=== PATIENT | female | born 1940 | race Caucasian/White ===

== ENCOUNTER → 2016-06-02 | Outpatient (CLI) | payer OTHER ==
[~2016-06-02] MED LIST: ACET-1138 PO; ASPEC81 PO; ATOR-24 PO; CEFU1TAB35 PO; CLB200 PO; HYDR25TA4 PO; LISI40TA PO; LSNP/30 PO; LXT PO; METR0.754 TOP; ONDA4TAB65 PO; OXYB10TA PO; OXYSR10 PO; PEDICHW50 PO; PENC1CRE33 TOP; PROM25TA PO; PXL/40 PO; RXC5 PO; SIME80CH PO; SOLI10TA2 PO; TRIA0.5O TOP; VITAMIN B12 SC; ZNTT/150 PO
== END | disposition home or self-care (01) ==
LOC: C.LABSPEC 14:29
PROVIDERS: ATTEND Urology
DX: N39.0 Urinary tract infection, site not specified (principal)

== ENCOUNTER → 2016-06-30 | Outpatient (CLI) | payer OTHER | END | disposition home or self-care (01) | LOC: C.LABSPEC 15:57 | PROVIDERS: ATTEND Urology | DX: N39.0 Urinary tract infection, site not specified (principal); R32 Unspecified urinary incontinence; R35.0 Frequency of micturition; R39.15 Urgency of urination ==

== ENCOUNTER → 2016-07-25 | Outpatient (CLI) | payer OTHER ==
--- NOTE | 2016-07-25 11:13 | DIAGNOSTIC IMAGING REPORT ---
ABDOMEN AND PELVIS CT WITHOUT CONTRAST CT DOSE: 448.97 mGy.cm HISTORY: Flank pain N39.0 Acute UTIR35.0 Urinary asbzorpyrD39.15 Urinary urgency l TECHNIQUE: Multiaxial CT images of the abdomen and pelvis were performed without contrast. COMPARISON STUDY: 09/26/2006 FINDINGS: Mild bibasilar atelectatic change. Configuration of liver spleen and pancreas appears unremarkable. Pancreas is partially atrophied. Several nonobstructing calcifications lower pole left kidney unchanged in the prior exam to slightly increased in maximum dimension. Largest calcification within the lower pole left renal collecting system measures 9 mm. Right kidney demonstrates a subtle increase in infiltrative change of the right renal perinephric fat. No evidence for hydronephrosis. Possibility of developing pyelonephritis is a consideration. There is increased fecal load throughout the colon. There are nonobstructive bilateral inguinal hernias. There are postoperative changes consistent with prior surgical anastomosis of the sigmoid as well as probable gastric bypass type procedure. IMPRESSION: 1. Slight increase in volume of several nonobstructing calcifications lower aspect left kidney. 2. Slight edematous change right kidney with a slight degree of infiltrative change of the perinephric fat. Right renal pyelonephritis must be considered. 3. Increased fecal load throughout the colon consistent with a component of fecal stasis. 4. Stable postoperative changes including changes of a prior gastric bypass as well as partial sigmoid resection. Electronically signed by: Darren Arauz M.D. 07/25/2016 11:11 AM Dictated Date/Time: 07/25/2016 11:05 AM
== END | disposition home or self-care (01) ==
LOC: C.CTS 10:47
PROVIDERS: ATTEND Urology
DX: N39.0 Urinary tract infection, site not specified (principal); R35.0 Frequency of micturition; R39.15 Urgency of urination; N20.0 Calculus of kidney

== ENCOUNTER → 2016-08-25 | Outpatient (CLI) | payer OTHER ==
[~2016-08-25] MED LIST changes: -PENC1CRE33 TOP; +PENC1CRE4 TOP
== END | disposition home or self-care (01) ==
LOC: C.LABSPEC 10:46
PROVIDERS: ATTEND Urology
DX: N39.0 Urinary tract infection, site not specified (principal)

== ENCOUNTER → 2016-09-14 | Outpatient (CLI) | payer OTHER ==
[~2016-09-14] VITALS: Ht 160 cm; Wt 68.9 kg
[~2016-09-14] MED LIST changes: +LACTATED RINGER'S 1000ML 1,000 ML IV SCH; +PIPERACILL/TAZOBAC IV 3.375 GM in DEXTROSE 5% 100ML IV SCH
[2016-09-14 12:53] VITALS: Ht 160 cm; Wt 68.9 kg
--- NOTE | 2016-09-14 13:19 | PAT Medication Instructions ---
Service Date Sep 14, 2016. Current Home Medication List Atorvastatin (Lipitor), 40 MG PO QAM Cefuroxime Axetil (Cefuroxime Axetil), 1 TAB PO BID Lisinopril (Zestril), 40 MG PO QAM Ondansetron Hcl (Zofran), 4 MG PO PRN PRN for Nausea Paroxetine (Paxil), 40 MG PO HS Ranitidine (Zantac), 150 MG PO BID Simethicone (Gas-X), 1 TAB PO DAILY PRN for PRN Solifenacin (Vesicare), 10 MG PO QAM Medication Instructions For Your Scheduled Surgery - Hold the following medications the morning of surgery: Solifenacin (Vesicare), 10 MG PO QAM Simethicone (Gas-X), 1 TAB PO DAILY PRN for PRN Ranitidine (Zantac), 150 MG PO BID Lisinopril (Zestril), 40 MG PO QAM - Take the following medications the morning of surgery with a sip of water: Ondansetron Hcl (Zofran), 4 MG PO PRN PRN for Nausea (if needed) Atorvastatin (Lipitor), 40 MG PO QAM Cefuroxime Axetil (Cefuroxime Axetil), 1 TAB PO BID - Take the following medications as scheduled the night before surgery: Simethicone (Gas-X), 1 TAB PO DAILY PRN for PRN (if needed) Ranitidine (Zantac), 150 MG PO BID Paroxetine (Paxil), 40 MG PO HS Ondansetron Hcl (Zofran), 4 MG PO PRN PRN for Nausea (if needed) Cefuroxime Axetil (Cefuroxime Axetil), 1 TAB PO BID If you have any questions please call us at [phone] or [phone] or [phone]
--- NOTE | 2016-09-14 13:57 | DIAGNOSTIC IMAGING REPORT ---
CHEST PREADMISSION(PA/LAT) CLINICAL HISTORY: PAT preoperative evaluation COMPARISON STUDY: 05/08/2015 FINDINGS: The bones soft tissues and hemidiaphragms are normal. The cardiomediastinal silhouette is normal. The lungs are clear. The pulmonary vasculature is normal. Chronic fibrotic changes left base. No acute infiltrate. IMPRESSION: No acute process. Chronic changes as noted. The above report was generated using voice recognition software. It may contain grammatical, syntax or spelling errors. Electronically signed by: Darren Arauz M.D. 09/14/2016 1:56 PM Dictated Date/Time: 09/14/2016 1:55 PM
[2016-09-14 14:21] LABS: BASO % 0.3 %; BASO ABS # 0.02 K/uL (0-0.2); COMPLETE YES; EOS % 3.8 %; HEMATOCRIT 40.7 % (37-47); IG% 0.3 %; LYMPH % 23.1 %; LYMPH ABS # 1.72 K/uL (1.2-3.4); MEAN CELL VOLUME 88.5 fL (80-100); MEAN CORPUSCULAR HGB CONC 33.9 g/dl (32-36); MEAN PLATELET VOLUME 8.9 fL (7.4-10.4); MONO % 6.6 %; NEUT % 65.9 %; PLATELET COUNT 321 K/uL (130-400); WHITE BLOOD COUNT 7.46 K/uL (4.8-10.8)
[2016-09-14 14:28] LABS: BUN/CREATININE RATIO 22.2 (10-20); CALCIUM 9.1 mg/dl (8.5-10.1); CREATININE 0.69 mg/dl (0.60-1.20); POTASSIUM 4.1 mmol/L (3.5-5.1)
[2016-09-14 14:41] LABS: URINE APPEARANCE TURBID (CLEAR); URINE BILIRUBIN NEG (NEG); URINE COLOR DK YELLOW; URINE EPITHELIAL CELL AUTO >30 /lpf (0-5); URINE NITRITE NEG (NEG); URINE PH 5.5 (4.5-7.5); URINE SPECIFIC GRAVITY 1.019 (1.000-1.030); UROBILINOGEN NEG (NEG)
[2016-09-14 14:49] LABS: MANUAL MICROSCOPIC REQUIRED? NO; REVIEW REQ? YES
== END | disposition home or self-care (01) ==
LOC: C.LAB 08:00 → EDSTATUS 09-27 12:41
PROVIDERS: ATTEND Urology
DX: Z01.818 Encounter for other preprocedural examination (principal)

== ENCOUNTER 2020-03-10 09:27 | Inpatient (IN) ==
[2020-03-10] MEDS ORDERED: cefTRIAXone SODIUM 1,000 MG/50 ML BAG IV STA (09:53)
[2020-03-10] MEDS: SODIUM CHLORIDE 0.9% 1000ML 1,000 ML IV SCH ×2 (10:34→20:17)
[2020-03-10 10:36] LABS: Basophils # (auto) 0.02 K/uL (0-0.2); Basophils % (auto) 0.2 %; Eosinophils # (auto) 0.09 K/uL (0-0.5); Hematocrit (blood only) 45.2 % (37-47); Hemoglobin 15.3 g/dL (12.0-16.0); Immature Granulocytes # (auto) 0.02 K/uL (0.00-0.02); Immature Granulocytes % (auto) 0.2 %; Lymphocytes # (auto) 1.77 K/uL (1.2-3.4); Lymphocytes % (auto) 19.6 %; Mean Corpuscular Hemoglobin 30.9 pg (25-34); Mean Corpuscular Hgb Conc 33.8 g/dL (32-36); Mean Corpuscular Volume 91.3 fL (80-100); Mean Platelet Volume 9.6 fL (7.4-10.4); Monocytes # (auto) 0.61 K/uL (0.11-0.59); Monocytes % (auto) 6.7 %; Neutrophils # (auto) 6.54 K/uL (1.4-6.5); Neutrophils % (auto) 72.3 %; Platelet Count 359 K/uL (130-400); RDW Coefficient of Variation 15.6 % (11.5-14.5); RDW Standard Deviation 52.3 fL (36.4-46.3); Red Blood Count 4.95 M/uL (4.2-5.4); White Blood Count 9.05 K/uL (4.8-10.8)
[2020-03-10 10:53] LABS: Albumin Level 3.7 gm/dl (3.4-5.0); BUN Creatinine Ratio 20.7 (10-20); Calcium 9.9 mg/dl (8.5-10.1); Creatinine Clr Calc Pharmacy 61.6 ml/min; Est GFR (African American) 96.6; Est GFR (Non-African American) 83.4; Potassium 4.3 mmol/L (3.5-5.1)
[2020-03-10 10:56] LABS: Albumin Globulin Ratio 0.9 (0.9-2); Bilirubin,Total 0.4 mg/dl (0.2-1); Total Protein 7.7 gm/dl (6.4-8.2)
--- NOTE | 2020-03-10 11:07 | XRay Report ---
KUB CLINICAL HISTORY: L ureteral stone COMPARISON STUDY: Renal ultrasound 03/05/20. CT of the abdomen and pelvis July 25, 2016. FINDINGS: A 1.9 x 0.8 cm left ureteropelvic junction calculus is similar to ultrasound of March 05, 2020. A 1 cm calculus within the lower pole of the left kidney is noted. A few suspected right renal calculi are obscured by overlying stool and bowel gas. Bowel gas pattern is normal. Severe left hip osteoarthritis is noted with loss of the joint space and extensive sclerosis and osteophytosis with f lattening of the left femoral head. Several surgical staple lines within the bowel are noted. There i s S-shaped scoliosis of the thoracolumbar spine. IMPRESSION: 1. No change in a 1.9 x 0.8 cm left ureteropelvic junction calculus. 2. 1 cm calculus within the lower pole of the left kidney. Probable right renal calculi. ACT 112: Negative or not required by law. Electronically signed by: Clive Carver M.D. 03/10/2020 11:06 AM
--- NOTE | 2020-03-10 11:09 | XRay Report ---
XR chest 1V portable CLINICAL HISTORY: Fever. Chills. COMPARISON STUDY: Chest radiograph September 14, 2016. FINDINGS: Lung volumes are normal. There is no pneumothorax or pleural effusion. There is mild left l ower lung opacity. Cardiomediastinal silhouette is unremarkable. Is no evidence for pulmonary edema. IMPRESSION: Mild left lower lung opacity which could reflect an infectious process or atelectasis. ACT 112: Negative or not required by law. Electronically signed by: Clive Carver M.D. 03/10/2020 11:07 AM
[2020-03-10 11:28] LABS: Influenza A virus by PCR Negative (Neg); Influenza B virus by PCR Negative (Neg); RSV by PCR Negative (Neg); SARS CoV2 RNA(COVID-19) InHosp NEGATIVE (Negative)
[2020-03-10] MEDS ORDERED: ACETAMINOPHEN 1,000 MG/100 ML VIAL IV STA (11:39)
[2020-03-10 11:41] LABS: Appearance Urine Cloudy (Clear); Bacteria Urine Automated Negative (Negative); Bilirubin Urine Negative (Negative); Blood Urine 1+ (Negative); Color Urine Yellow; Epithelial Cell Urine Auto >30 /lpf (0-5); Glucose Urine UA Negative (Negative); Ketones Urine Negative (Negative); Leukocyte Esterase Urine 2+ (Negative); Nitrite Urine Negative (Negative); Protein Urine Negative (Negative); Specific Gravity Urine 1.014 (1.000-1.030); Urobilinogen Urine Negative (Negative); WBC Urine Automated >30 /hpf (0-5)
--- NOTE | 2020-03-10 13:11 | History & Physical Report ---
Date of Service March 10, 2020 Assessment & Plan (1) Obstruction of left ureteropelvic junction (UPJ) due to stone: (2) Complicated UTI (urinary tract infection): This is a 79yo F with a PMH of kidney stones, HTN, HLD, depression, anxiety, urinary incontinence and other medical problems listed below who presents with chills that started this morning with recently diagnosed large left sided kidney stones with UTI. -Recently diagnosed with large left sided kidney stone and referred to ED by PCP on 03/05/20 -Urology felt it was appropriate for outpatient follow-up and Bactrim was continued at time of discharge but 03/05 urine cx grew E.Coli resistant to Bactrim and Fluoroquinolones, was changed to Cefdinir on 03/07/20 -Developed chills this morning but afebrile, no leukocytosis. Lactate wnl. UA with evidence of infection - repeat urine culture pending -KUB with no change in a 1.9 x 0.8 cm left ureteropelvic junction calculus. Also with 1 cm calculus within the lower pole of the left kidney -Given Rocephin in ED and will continue. Follow urine culture -Urology consulted -plan for cystoscopy and left-sided ureteral stent placement tomorrow morning -NPO after midnight (3) Hypertension: Normotensive. Continue lisinopril. Not currently taking hctz although prescribed. Instructed to follow up with PCP to discuss further (4) Anxiety: (5) Hyperlipidemia: Continue statin (6) Depression: Continue Paxil, Remeron HS (7) Urge urinary incontinence: Continue oxybutynin DVT Ppx: SCDs Code status: FULL PCP: Elisabeth Dispo: Admitted to med/surg. Patient seen in collaboration with Dr. Phan. Please see addendum. History of Present Illness Chief Complaint: UTI, kidney stones Primary Care Provider: Debo Barber MD This is a 79yo F with a PMH of kidney stones, HTN, HLD, depression, anxiety, urinary incontinence and other medical problems listed below who presents with chills that started this morning. Was diagnosed with large left sided kidney stone and referred to ED by PCP on 03/05/20. Urology felt it was appropriate for patient to follow up in outpatient setting and Bactrim was continued at time of discharge. When urine culture from 03/05 grew E.Coli resistant to Bactrim and Fluoroquinolones, was changed to Cefdinir on 03/07/20, which patient states she has taken 1 day of. Was due for OP urology follow up today but woke up with chills so came to ED for further evaluation. Denies fever, lightheadedness, headache, chest pain, SOB, nausea, vomiting, abdominal pain, dysuria, hematuria, diarrhea or constipation. In ED, patient is afebrile and hemodynamically stable. No leukocytosis. Hgb stable at 15. Electrolytes wnl. Kidney function at baseline. Lactate wnl. UA with evidence of infection - urine culture pending. KUB with no change in a 1.9 x 0.8 cm left ureteropelvic junction calculus. Also with 1 cm calculus within th e lower pole of the left kidney. Probable right renal calculi. Given Rocephin and 1 L NSS in ED. Urology consulted and will see patient today with plans for intervention tomorrow. Allergies Allergy/AdvReac Type Severity Reaction Status Date / Time cephalexin AdvReac Mild YEAST Verified 03/10/20 10:45 INFECT Influenza Virus Vaccines AdvReac Mild GOT THE Verified 03/10/20 10:45 FLU YRS AGO Home Medications Medication Instructions Recorded Confirmed Type atorvastatin 40 mg PO QAM 01/03/18 03/10/20 History hydrochlorothiazide 12.5 mg PO QAM 01/03/18 03/10/20 History lisinopril 40 mg PO QAM 01/03/18 03/10/20 History paroxetine HCl [Paxil] 40 mg PO QAM 01/03/18 03/10/20 History oxybutynin chloride 10 mg 10 mg PO QAM 06/12/19 03/10/20 History tablet,extended release 24 hr mirtazapine [Remeron] 15 mg PO HS 03/05/20 03/10/20 History ondansetron HCl 4 mg PO Q6 PRN 03/05/20 03/10/20 History sulfamethoxazole-trimethoprim 1 tab PO Q12H 7 Days #14 tab 03/05/20 03/10/20 Rx [Bactrim DS] triamcinolone acetonide 1 applic TOPICAL BID PRN 03/05/20 03/10/20 History Past Med/Surg History Medical History (Updated 03/10/20 @ 14:57 by Tova Kelley PA-C) Anxiety Cancer SKIN CANCER-ARM Deep vein thrombosis 20 YEARS AGO-NO ISSUES SINCE Degenerative disc disease Depression Diverticulitis GERD (gastroesophageal reflux disease) Gout Hyperlipidemia Hypertension Kidney stones HX Osteoarthritis Urge urinary incontinence Surgical History (Updated 03/10/20 @ 14:52 by Tova Kelley PA-C) H/O oophorectomy History of appendectomy History of bilateral tubal ligation History of bowel resection History of cataract surgery LEFT History of cholecystectomy History of colonoscopy History of colostomy AND REVERSAL History of dilatation and curettage History of gastric bypass History of tonsillectomy History of tooth extraction History of total knee replacement LEFT S/P panniculectomy S/P TKR (total knee replacement) Family History Sister Family history of diabetes mellitus Mother Family history of diabetes mellitus Social History Smoking Status: Current every day smoker packs per day: 0.5; Cigarettes Per Day: 1/2 pack.; Second Hand Exposure: No; Do You Dip or Chew Tobacco: No; Tobacco Cessation Education Requested by Patient: No Hx Alcohol Use: No Hx Substance Use: No Preferred Language: Romansh Communication Ability: Effective Gel Coat Sprayer Required: No Beliefs That Will Affect Care: None Current Living Situation: Alone Other Information That Helps Us Care for You: No Feels Safe at Home: Yes Safety Concerns: Feels Safe At This Time Assistive Devices: Cane, Denture - Upper and Glasses Review of Systems Review of Systems: At least ten systems reviewed and negative except as noted in the HPI. Physical Exam Physical Exam: General Appearance: WD/WN, vitals as above, NAD, sitting up in bed, pleasant, conversing easily Head: normocephalic, atraumatic Eyes: normal inspection, PERRL, conjunctivae normal, anicteric sclerae ENT: external ear and nose normal, oropharynx normal Neck: normal visual inspection, trachea midline, no thyromegaly Respiratory: normal respiratory effort, clear to auscultation, no wheeze, rales or rhonchi. No accessory muscle use Cardiovascular: regular rate, rhythm, no murmur, normal peripheral pulses, no BLE edema. Vessels: no JVD Chest: normal inspection of chest Abdomen/GI: normal bowel sounds, soft, nontender, no hepatosplenomegaly Extremities/Musculoskeletal: no cyanosis or clubbing, extremities motor strength 5/5 Neurologic: PERRL, EOMI, accommodation nl, no face palsy, no dysarthria, CN's II-XI intact bilaterally and moves all extremities Psychiatric: A+Ox3, euthymic affect Skin: no rashes, normal color, warm/dry Results & Data Results & Data ([facility]) Vital Signs (Past 12 Hours) Vital Signs Temp Pulse Pulse Resp BP BP Pulse Ox 03/10/20 12:30 36.9 C 71 16 135/97 95 03/10/20 12:12 74 14 149/90 H 97 03/10/20 12:11 84 18 149/90 H 96 03/10/20 11:00 81 18 141/68 H 97 03/10/20 10:44 72 16 149/78 H 97 03/10/20 10:43 80 19 149/78 H 97 03/10/20 09:30 36.3 C L 88 16 173/88 H 97 Laboratory Results Short CBC 03/10/20 Range/Units 09:59 WBC 9.05 (4.8-10.8) K/uL Hgb 15.3 (12.0-16.0) g/dL Hct 45.2 (37-47) % Plt Count 359 (130-400) K/uL BMP 03/10/20 09:59 Sodium 136 Potassium 4.3 Chloride 103 Carbon Dioxide 28 BUN 14 Creatinine 0.69 Glucose 109 H Calcium 9.9 Liver Function 03/10/20 Range/Units 09:59 Total Bilirubin 0.4 (0.2-1) mg/dl AST 15 (15-37) U/L ALT 18 (12-78) U/L Alkaline Phosphatase 114 (45-117) U/L Albumin 3.7 (3.4-5.0) gm/dl Urine 03/10/20 Range/Units 11:00 Urine Color Yellow Urine Appearance Cloudy A (Clear) Urine pH 6.0 (4.5-7.5) Ur Specific Shannon 1.014 (1.000-1.030) Urine Protein Negative (Negative) Urine Glucose (UA) Negative (Negative) Diagnostic Findings CXR: IMPRESSION: Mild left lower lung opacity which could reflect an infectious process or atelectasis. KUB: IMPRESSION: 1. No change in a 1.9 x 0.8 cm left ureteropelvic junction calculus. 2. 1 cm calculus within the lower pole of the left kidney. Probable right renal calculi. Code Status & VTE Plan VTE Prophylaxis Plan VTE Prophylaxis will be ordered: Yes Supervising Physician Co-Signing Physician Notes Patient is a 79-year-old female with history of nephrolithiasis, hypertension, depression and other medical problems presents with history of chills, hematuria. Please review HPI for complete details of presentation. Urine culture from March 05 growing E. coli. She admits to taking antibiotics as prescribed. Reports hematuria day before yesterday. Denies chest pain, dyspnea, flank pain, abdominal pain, dysuria, fever. No leukocytosis or signs of sepsis. COVID screen negative, procalcitonin and lactic acid levels normal. KUB showed 1.99 2.8 cm left to pelvic junction calculus. Also noted 1 cm calculus within the lower pole of the left kidney. On exam patient is moderately built and nourished, no apparent distress, normocephalic atraumatic, elderly, lungs--decreased breath sounds, clear to auscultation, S1-S2, no murmur, abdomen soft, nontender, no flank tenderness, normal bowel sounds, alert, awake, oriented, grossly no focal deficits, Trace pitting pedal edema. Patient is admitted for management of complicated urinary tract infection secondary to left ureteral stone. Started on IV Rocephin, Flomax. Continue IV fluids. Hold HCTZ and Oxybutynin for now. Urology consulted. Plan for possible stent placement tomorrow. Keep n.p.o. after midnight. Will consider Pyridium if patient develops dysuria. Monitor CBC. Also noted mild left lower lobe opacity on chest x-ray likely is atelectasis. Procalcitonin normal. Patient denies cough. I personally reviewed the record. Patient is interviewed and examined at bedside. Patient's care is coordinated with Tova Kelley PA-C. Please refer to the documentation above for details of patient's presentation and for discussion of other issues.
--- NOTE | 2020-03-10 14:00 | Urology Consultation ---
Date of Consultation March 10, 2020 Assessment & Plan (1) Obstruction of left ureteropelvic junction (UPJ) due to stone: (2) Acute UTI: 79 year-old female patient, with multiple comorbidities, admitted with obstructing 1.9 cm left ureteropelvic junction calculus and UTI. -Patient afebrile, non-toxic in appearance. -Imaging reviewed - obstructing 1.9 cm left UPJ stone with 1 cm calculus within lower pole of left kidney. -Labs reviewed - white count and creatinine stable. -Urine culture 03/05 with E.Coli, was treated with Bactrim as outpatient but due to resistance was switched to Cefdinir. -Repeat urine and blood cultures pending. -Recommend supportive care and continued antibiotic therapy. -Plan for surgical intervention tomorrow with cystoscopy and left-sided ureteral stent placement. -Recommend NPO at midnight. -OR notified, chest x-ray in chart, EKG ordered and COVID-19 negative. -Will continue to follow while inpatient and plan to reassess in AM. Please consult our service urgently if patient develops fever >101F, intractable pain or nausea, as this will necessitate urgent surgical intervention. Thank you for the consultation and we will continue to monitor closely with primary service. History of Present Illness Reason for Consultation: left UPJ stone, UTI History of Present Illness 79 year-old female patient, with past medical history of kidney stones, hypertension, hyperlipidemia, depression, anxiety, DVT 20 years ago, hypothyroidism, and urinary incontinence, presented to the emergency room today with complaints of chills and right-sided flank pain that began earlier this morning. She was recently diagnosed with obstructing left-sided proximal ureteral stone with UTI. Of note, patient was seen in the emergency room, refer red by her PCP, on 03/05/20 with complaints of hematuria. She was afebrile at that time. White count and creatinine normal. Urinalysis 03/05 was suspicious for infection and urine culture positive for E.Coli (resistance to Bactrim and Fluoroquinolones). She was sent home from ER on 03/05 with a prescription for Bactrim however due to resistant bacteria, was changed to Cefdinir on 03/07/20. Urology consulted for obstructing stone and UTI. Patient known to [facility], followed with Dr. Ba last in 2018 for stones and urinary frequency/urgency. Chart review: Afebrile Wbc 9.05 Hgb 15.3 Creatinine 0.69 Urine culture 03/05/20 >100,000 cfu E.Coli (resistant to Bactrim and Fluoroquinolones) - did receive 1g IV Ceftriaxone in ED. Repeat urine culture pending. Blood cultures pending. Imaging - [facility] 03/05/20 - Impression: Obstructing proximal left ureteral stone measuring 19 x 13 x 8 mm. Also with inferior pole stone measuring 15 x 11 x 10 mm. Probable debris within the dilated left renal collecting system. Bilateral nonobstructing nephrolithiasis. Bilateral renal cortical cysts. KUB 03/10/20 - Impression: 1. No change in a 1.9 x 0.8 cm left ureteropelvic junction calculus. 2. 1 cm calculus within the lower pole of the left kidney. Probable right renal calculi. Patient examined at bedside. She is non-toxic on exam. Reports her right-sided flank pain has improved. Continues to have chills, denies fever. Denies dysuria but does note intermittent hematuria. Reports urinary frequency/urgency. Denies abdominal or left-sided flank pain. Denies nausea or vomiting. States he has some dizziness when out of bed but denies syncopal episodes. She states she did start the Cefdinir she believes yesterday and took 2 doses. States she was told she has had larger stones in the past but declined surgical intervention for these. States her daughter has history of kidney stones. Denies additional urologic concerns today. Allergies Allergy/AdvReac Type Severity Reaction Status Date / Time cephalexin AdvReac Mild YEAST Verified 03/10/20 10:45 INFECT Influenza Virus Vaccines AdvReac Mild GOT THE Verified 03/10/20 10:45 FLU YRS AGO Home Medications Medication Instructions Recorded Confirmed Type atorvastatin 40 mg PO QAM 01/03/18 03/10/20 History hydrochlorothiazide 12.5 mg PO QAM 01/03/18 03/10/20 History lisinopril 40 mg PO QAM 01/03/18 03/10/20 History paroxetine HCl [Paxil] 40 mg PO QAM 01/03/18 03/10/20 History oxybutynin chloride 10 mg 10 mg PO QAM 06/12/19 03/10/20 History tablet,extended release 24 hr mirtazapine [Remeron] 15 mg PO HS 03/05/20 03/10/20 History ondansetron HCl 4 mg PO Q6 PRN 03/05/20 03/10/20 History sulfamethoxazole-trimethoprim 1 tab PO Q12H 7 Days #14 tab 03/05/20 03/10/20 Rx [Bactrim DS] triamcinolone acetonide 1 applic TOPICAL BID PRN 03/05/20 03/10/20 History Patient History Medical History (Updated 03/10/20 @ 14:57 by Tova Kelley PA-C) Anxiety Cancer SKIN CANCER-ARM Deep vein thrombosis 20 YEARS AGO-NO ISSUES SINCE Degenerative disc disease Depression Diverticulitis GERD (gastroesophageal reflux disease) Gout Hyperlipidemia Hypertension Kidney stones HX Osteoarthritis Urge urinary incontinence Surgical History (Updated 03/10/20 @ 14:52 by Tova Kelley PA-C) H/O oophorectomy History of appendectomy History of bilateral tubal ligation History of bowel resection History of cataract surgery LEFT History of cholecystectomy History of colonoscopy History of colostomy AND REVERSAL History of dilatation and curettage History of gastric bypass History of tonsillectomy History of tooth extraction History of total knee replacement LEFT S/P panniculectomy S/P TKR (total knee replacement) Family History Sister Family history of diabetes mellitus Mother Family history of diabetes mellitus Social History Smoking Status: Current every day smoker packs per day: 0.5; Cigarettes Per Day: 1/2 pack.; Second Hand Exposure: No; Do You Dip or Chew Tobacco: No; Tobacco Cessation Education Requested by Patient: No Hx Alcohol Use: No Hx Substance Use: No Preferred Language: Montenegrin Communication Ability: Effective Converter Supervisor Required: No Beliefs That Will Affect Care: None Current Living Situation: Alone Other Information That Helps Us Care for You: No Feels Safe at Home: Yes Safety Concerns: Feels Safe At This Time Assistive Devices: Cane, Denture - Upper and Glasses Review of Systems Constitutional: as per Subjective / HPI and + chills; no fever Eyes: no problem reported Ear, Nose, Mouth, Throat: as per Subjective / HPI and + dizziness Respiratory: no cough and no dyspnea Cardiovascular: no chest pain and no edema Gastrointestinal: as per Subjective / HPI Genitourinary: as per Subjective / HPI Musculoskeletal: as per Subjective / HPI Neurologic: as per Subjective / HPI and + dizziness Endocrine: no fatigue Hematologic / Lymphatic: no easy bleeding and no easy bruising Physical Exam Constitutional: well developed and well nourished; no acute distress and not ill appearing Non-toxic in appearance. ENMT: Ears: no external ear abnormality Neck: normal visual inspection and trachea midline Respiratory: normal respiratory effort and able to speak in complete sentences; no respiratory distress and no audible wheezes Cardiovascular: Extremities: no calf tenderness and no edema Gastrointestinal (Abdomen): Inspection/Auscultation: abdomen normal to inspection; abdomen not distended Percussion/Palpation: abdomen soft; abdomen nontender and no guarding Musculoskeletal: Moves all extremities without difficulty. Skin: No visible rashes, lesions, or wounds noted. Neurologic: moves all extremities and awake Psychiatric: Orientation: alert, oriented x 3 and cooperative Affect: euthymic affect Genitourinary: no CVA tenderness Results & Data ([facility]) Vital Signs (Past 12 Hours) Vital Signs Temp Pulse Pulse Resp BP BP Pulse Ox 03/10/20 12:30 36.9 C 71 16 135/97 95 03/10/20 12:12 74 14 149/90 H 97 03/10/20 12:11 84 18 149/90 H 96 03/10/20 11:00 81 18 141/68 H 97 03/10/20 10:44 72 16 149/78 H 97 03/10/20 10:43 80 19 149/78 H 97 03/10/20 09:30 36.3 C L 88 16 173/88 H 97 PG Care Time/CCT Total # of Minutes Spent Total Time Spent with Patient: Total time spent is greater than 50% in coordination of care (as documented) at patient's floor/unit and/or counseling patient: Coding Level of Care Code 42306 Initial Inpt Care Lvl 3 Diagnoses Obstruction of left ureteropelvic junction (UPJ) due to stone N20.1 Acute UTI N39.0
[2020-03-10] MEDS ORDERED: POLYETHYLENE (MIRALAX) 17 GM PACK PO PRN (15:03)
[2020-03-10] MEDS ORDERED: ONDANSETRON INJ 2 MG/ML 2 ML VIAL IV PRN (15:03)
[2020-03-10] MEDS ORDERED: ACETAMINOPHEN 325 MG TAB PO PRN (15:43)
[2020-03-10] MEDS ORDERED: TAMSULOSIN HCL 0.4 MG CAP PO ONE (15:45)
--- NOTE | 2020-03-10 18:04 | Emergency Department Note ---
Impression & Plan Obstruction of left ureteropelvic junction (UPJ) due to stone, Complicated UTI (urinary tract infection) ED Provider Note NAME: ELMER VARNER AGE: 79 SEX: F ARRIVES VIA: Walk-In INFORMANT: Patient ED PROVIDER(S): Lelo Siu MD CHIEF COMPLAINT: kidney stone, UTI, chill PLAN: Disposition: admission Condition: Fair Referral: hospitalist, urology MEDICAL DECISION MAKING: This pt was evaluated and appeared to be in no distress. IV access was obtained and lab work was drawn. Pt was placed on the zipper setter and noted to be in a SR with premature supraventricular complexes at 80 bpm. Pt was gently hydrated with NSS, given IV tylenol for pain. KUB was performed and reveals a 1.9 cm L UPJ stone. UA is indicative of infection and recent cx results were reviewed. Pt was medicated with IV ceftriaxone. Case was d/w urology GUICHO Stephany for Dr. Ba and the hospitalist service Dr. Fernandez for further management. Triage Nursing notes reviewed. Prior medical records reviewed. Vital Signs: reviewed and remarkable for HTN. Differential diagnosis: Renal colic, UTI, appendicitis, diverticulitis, mesenteric ischemia, aortic pathology, infections, inflammatory bowel disease, PUD, biliary pathology, as well as other pathologies. ER treatment provided: IV NSS IV tylenol IV ceftriaxone Diagnostics interpreted by me: ECG:NSR with premature supraventricular complexes at 71 bpm. T wave abnl laterally, normal axis, normal ST segments. Cardiac Monitoring: An order for cardiac monitoring was placed and the pt was noted to be in a SR with premature supraventricular complexes at 80 bpm. Laboratory studies: +UA, see below Imaging studies: KUB CLINICAL HISTORY: L ureteral stone COMPARISON STUDY: Renal ultrasound 03/05/20. CT of the abdomen and pelvis July 25, 2016. FINDINGS: A 1.9 x 0.8 cm left ureteropelvic junction calculus is similar to ultrasound of March 05, 2020. A 1 cm calculus within the lower pole of the left kidney is noted. A few suspected right renal calculi are obscured by overlying stool and bowel gas. Bowel gas pattern is normal. Severe left hip osteoarthritis is noted with loss of the joint space and extensive sclerosis and osteophytosis with flattening of the left femoral head. Several surgical staple lines within the bowel are noted. There is S-shaped scoliosis of the thoracolumbar spine. IMPRESSION: 1. No change in a 1.9 x 0.8 cm left ureteropelvic junction calculus. 2. 1 cm calculus within the lower pole of the left kidney. Probable right renal calculi. ACT 112: Negative or not required by law. Electronically signed by: Clive Carver M.D. 03/10/2020 11:06 AM Dictated: 03/10/20 1103Transcribed: 03/10/20 1103 XR chest 1V portable CLINICAL HISTORY: Fever. Chills. COMPARISON STUDY: Chest radiograph September 14, 2016. FINDINGS: Lung volumes are normal. There is no pneumothorax or pleural effusion. There is mild left lower lung opacity. Cardiomediastinal silhouette is unremarkable. Is no evidence for pulmonary edema. IMPRESSION: Mild left lower lung opacity which could reflect an infectious process or atelectasis. ACT 112: Negative or not required by law. Electronically signed by: Clive Carver M.D. 03/10/2020 11:07 AM Dictated: 03/10/20 1106Transcribed: 03/10/20 110 Consultation(s): Urology, hospitalist HPI: 79/F arrives for evaluation of chills. Pt was evaluated in the ED several days ago and dx with UTI after having an outpt US significant for renal calculus. Pt was d/c on Bactrim DS as she was felt not to have a septic stone or pyelonephritis. Pt denies fever at home. She denies vomiting, diarrhea, bur maria isabel with urination. She c/o a "small pain" in the right flank, but states she knows the stones are the left. Pt was switched to cefdinir after the cx was resistant to Bactrim. She has taken ~2 or 3 doses this far. Pt was scheduled with urology today, but felt she needed to be seen in the ED sooner. ROS: See above HPI for pertinent positives & negatives. A total of 10 systems reviewed and were otherwise negative. PAST MEDICAL HISTORY:See Below PAST SURGICAL HISTORY:See Below FAMILY HISTORY:See Below SOCIAL HISTORY:See Below HOME MEDICATIONS:See Below ALLERGIES:See Below VITALS:See Below PHYSICAL EXAMINATION: Vital signs reviewed. Notable for HTN. General: Well-appearing 79 yo female, in no significant distress. HEENT: No scleral icterus, PERRLA, neck supple. Atraumatic. Cardiovascular: Regular rate and rhythm, no extra sounds. Occasional ectopy. Pulmonary: Clear to auscultation bilaterally, normal work of breathing. Abdomen: Soft, nontender, nondistended, positive bowel sounds. No CVA tende rness. Musculoskeletal: Atraumatic, no peripheral edema. Neurologic: Patient awake alert and oriented x 3 Skin: Warm, dry, no rash Lelo Siu MD Past Med/Surg History Medical History Anxiety Cancer SKIN CANCER-ARM Deep vein thrombosis 20 YEARS AGO-NO ISSUES SINCE Degenerative disc disease Depression Diverticulitis GERD (gastroesophageal reflux disease) Gout Hyperlipidemia Hypertension Kidney stones HX Osteoarthritis Urge urinary incontinence Surgical History H/O oophorectomy History of appendectomy History of bilateral tubal ligation History of bowel resection History of cataract surgery LEFT History of cholecystectomy History of colonoscopy History of colostomy AND REVERSAL History of dilatation and curettage History of gastric bypass History of tonsillectomy History of tooth extraction History of total knee replacement LEFT S/P panniculectomy S/P TKR (total knee replacement) Family History Sister Family history of diabetes mellitus Mother Family history of diabetes mellitus Social History Smoking Status: Current every day smoker packs per day: 0.5; Cigarettes Per Day: 1/2 pack.; Second Hand Exposure: No; Hx Alcohol Use: No Hx Substance Use: No Preferred Language: Faroese Communication Ability: Effective Credit Review Analyst Required: No Beliefs That Will Affect Care: None Current Living Situation: Alone Feels Safe at Home: Yes Assistive Devices: Cane and Glasses Allergies Allergies Allergy/AdvReac Type Severity Reaction Status Date / Time cephalexin AdvReac Mild YEAST Verified 03/10/20 10:45 INFECT Influenza Virus Vaccines AdvReac Mild GOT THE Verified 03/10/20 10:45 FLU YRS AGO Home Meds Home Medications Medication Instructions Recorded Confirmed atorvastatin 40 mg PO QAM 01/03/18 03/10/20 hydrochlorothiazide 12.5 mg PO QAM 01/03/18 03/10/20 lisinopril 40 mg PO QAM 01/03/18 03/10/20 paroxetine HCl [Paxil] 40 mg PO QAM 01/03/18 03/10/20 oxybutynin chloride 10 mg 10 mg PO QAM 06/12/19 03/10/20 tablet,extended release 24 hr mirtazapine [Remeron] 15 mg PO HS 03/05/20 03/10/20 ondansetron HCl 4 mg PO Q6 PRN 03/05/20 03/10/20 triamcinolone acetonide 1 applic TOPICAL BID PRN 03/05/20 03/10/20 Previous Rx's Medication Instructions Recorded cefdinir 300 mg PO Q12H 8 Days #16 cap 03/12/20 Results & Data (ED) Vital Signs Vital Signs - 24 hr 03/10/20 09:30 03/10/20 10:43 03/10/20 10:44 Temperature 36.3 C L Temperature Source Temporal Artery Scan Pulse Rate 88 72 Pulse Rate [Apical] 80 Pulse Rate from SpO2 Sensor 69 Pulse Rhythm [Apical] Irregular Respiratory Rate 16 19 16 Respiratory Effort / Characteristics Non-Labored Non-Labored Spontaneous Respiratory Depth Normal Normal Respiratory Pattern Regular Blood Pressure 173/88 H 149/78 H Blood Pressure [Left Arm] 149/78 H Blood Pressure Mean 116 101 Blood Pressure Mean [Left Arm] 101 Blood Pressure Position [Left Arm] Sitting Pulse Oximetry 97 97 97 Oxygen Delivery Method Room Air Sepsis Recent Fever Within 48 Hours No Sepsis New/Unexplained Change in Mental Status No Sepsis Action Taken by Nursing No Action Required 03/10/20 11:00 03/10/20 12:11 03/10/20 12:12 Temperature Temperature Source Pulse Rate 81 84 Pulse Rate [Apical] 74 Pulse Rate from SpO2 Sensor 65 82 Pulse Rhythm [Apical] Respiratory Rate 18 18 14 Respiratory Effort / Characteristics Respiratory Depth Respiratory Pattern Blood Pressure 141/68 H 149/90 H Blood Pressure [Left Arm] 149/90 H Blood Pressure Mean 92 109 Blood Pressure Mean [Left Arm] 109 Blood Pressure Position [Left Arm] Pulse Oximetry 97 96 97 Oxygen Delivery Method Room Air Sepsis Recent Fever Within 48 Hours Sepsis New/Unexplained Change in Mental Status Sepsis Action Taken by Nursing 03/10/20 12:30 Temperature 36.9 C Temperature Source Pulse Rate 71 Pulse Rate [Apical] Pulse Rate from SpO2 Sensor 79 Pulse Rhythm [Apical] Respiratory Rate 16 Respiratory Effort / Characteristics Respiratory Depth Respiratory Pattern Blood Pressure 135/97 Blood Pressure [Left Arm] Blood Pressure Mean 109 Blood Pressure Mean [Left Arm] Blood Pressure Position [Left Arm] Pulse Oximetry 95 Oxygen Delivery Method Sepsis Recent Fever Within 48 Hours Sepsis New/Unexplained Change in Mental Status Sepsis Action Taken by Alf Medications Current Medication List: was personally reviewed by me Laboratory Data Attestation: I reviewed the patient's lab results. Result diagrams: 03/12/20 06:04 03/12/20 06:04 Lab Results 03/10/20 03/10/20 03/10/20 Range/Units 09:59 09:59 09:59 WBC 9.05 (4.8-10.8) K/uL RBC 4.95 (4.2-5.4) M/uL Hgb 15.3 (12.0-16.0) g/dL Hct 45.2 (37-47) % MCV 91.3 (80-100) fL MCH 30.9 (25-34) pg MCHC 33.8 (32-36) g/dL RDW Std Deviation 52.3 H (36.4-46.3) fL RDW Coeff of Sheryl 15.6 H (11.5-14.5) % Plt Count 359 (130-400) K/uL MPV 9.6 (7.4-10.4) fL Immature Gran % (Auto) 0.2 % Neut % (Auto) 72.3 % Lymph % (Auto) 19.6 % [place] % (Auto) 6.7 % Eos % (Auto) 1.0 % Baso % (Auto) 0.2 % Neut # (Auto) 6.54 H (1.4-6.5) K/uL Lymph # (Auto) 1.77 (1.2-3.4) K/uL [place] # (Auto) 0.61 H (0.11-0.59) K/uL Eos # (Auto) 0.09 (0-0.5) K/uL Baso # (Auto) 0.02 (0-0.2) K/uL Immature Gran # (Auto) 0.02 (0.00-0.02) K/uL Sodium 136 (136-145) mmol/L Potassium 4.3 (3.5-5.1) mmol/L Chloride 103 (98-107) mmol/L Carbon Dioxide 28 (21-32) mmol/L Anion Gap 5.0 (3-11) BUN 14 (7-18) mg/dl Creatinine 0.69 (0.6-1.2) mg/dl Est Cr Clr Drug Dosing 61.6 ml/min Est GFR ( Amer) 96.6 Est GFR (Non-Af Amer) 83.4 BUN/Creatinine Ratio 20.7 H (10-20) Glucose 109 H (70-99) mg/dl Lactate 1.2 (0.4-2.0) mmol/L Calcium 9.9 (8.5-10.1) mg/dl Total Bilirubin 0.4 (0.2-1) mg/dl AST 15 (15-37) U/L ALT 18 (12-78) U/L Alkaline Phosphatase 114 (45-117) U/L Total Protein 7.7 (6.4-8.2) gm/dl Albumin 3.7 (3.4-5.0) gm/dl Globulin 4.0 (2.5-4.0) gm/dl Albumin/Globulin Ratio 0.9 (0.9-2) Procalcitonin (0-0.5) ng/ml Urine Color Urine Appearance (Clear) Urine pH (4.5-7.5) Ur Specific [place] (1.000-1.030) Urine Protein (Negative) Urine Glucose (UA) (Negative) Urine Ketones (Negative) Urine Blood (Negative) Urine Nitrite (Negative) Urine Bilirubin (Negative) Urine Urobilinogen (Negative) Ur Leukocyte Esterase (Negative) Urine WBC (Auto) (0-5) /hpf Urine RBC (Auto) (0-4) /hpf U Hyaline Cast (Auto) (0-5) /lpf U Epithel Cells (Auto) (0-5) /lpf Urine Bacteria (Auto) (Negative) COVID-19 Eval Order SARS-CoV-2 (PCR) (Negative) Influenza Type A (PCR) (Neg) Influenza Type B (PCR) (Neg) RSV (RT-PCR) (Neg) 03/10/20 03/10/20 03/10/20 Range/Units 09:59 10:42 10:42 WBC (4.8-10.8) K/uL RBC (4.2-5.4) M/uL Hgb (12.0-16.0) g/dL Hct (37-47) % MCV (80-100) fL MCH (25-34) pg MCHC (32-36) g/dL RDW Std Deviation (36.4-46.3) fL RDW Coeff of Sheryl (11.5-14.5) % Plt Count (130-400) K/uL MPV (7.4-10.4) fL Immature Gran % (Auto) % Neut % (Auto) % Lymph % (Auto) % [place] % (Auto) % Eos % (Auto) % Baso % (Auto) % Neut # (Auto) (1.4-6.5) K/uL Lymph # (Auto) (1.2-3.4) K/uL [place] # (Auto) (0.11-0.59) K/uL Eos # (Auto) (0-0.5) K/uL Baso # (Auto) (0-0.2) K/uL Immature Gran # (Auto) (0.00-0.02) K/uL Sodium (136-145) mmol/L Potassium (3.5-5.1) mmol/L Chloride (98-107) mmol/L Carbon Dioxide (21-32) mmol/L Anion Gap (3-11) BUN (7-18) mg/dl Creatinine (0.6-1.2) mg/dl Est Cr Clr Drug Dosing ml/min Est GFR ( Amer) Est GFR (Non-Af Amer) BUN/Creatinine Ratio (10-20) Glucose (70-99) mg/dl Lactate (0.4-2.0) mmol/L Calcium (8.5-10.1) mg/dl Total Bilirubin (0.2-1) mg/dl AST (15-37) U/L ALT (12-78) U/L Alkaline Phosphatase (45-117) U/L Total Protein (6.4-8.2) gm/dl Albumin (3.4-5.0) gm/dl Globulin (2.5-4.0) gm/dl Albumin/Globulin Ratio (0.9-2) Procalcitonin < 0.05 (0-0.5) ng/ml Urine Color Urine Appearance (Clear) Urine pH (4.5-7.5) Ur Specific [place] (1.000-1.030) Urine Protein (Negative) Urine Glucose (UA) (Negative) Urine Ketones (Negative) Urine Blood (Negative) Urine Nitrite (Negative) Urine Bilirubin (Negative) Urine Urobilinogen (Negative) Ur Leukocyte Esterase (Negative) Urine WBC (Auto) (0-5) /hpf Urine RBC (Auto) (0-4) /hpf U Hyaline Cast (Auto) (0-5) /lpf U Epithel Cells (Auto) (0-5) /lpf Urine Bacteria (Auto) (Negative) COVID-19 Eval Order [facility]FluRsv at [facility] SARS-CoV-2 (PCR) NEGATIVE (Negative) Influenza Type A (PCR) Negative (Neg) Influenza Type B (PCR) Negative (Neg) RSV (RT-PCR) Negative (Neg) 03/10/20 Range/Units 11:00 WBC (4.8-10.8) K/uL RBC (4.2-5.4) M/uL Hgb (12.0-16.0) g/dL Hct (37-47) % MCV (80-100) fL MCH (25-34) pg MCHC (32-36) g/dL RDW Std Deviation (36.4-46.3) fL RDW Coeff of Sheryl (11.5-14.5) % Plt Count (130-400) K/uL MPV (7.4-10.4) fL Immature Gran % (Auto) % Neut % (Auto) % Lymph % (Auto) % [place] % (Auto) % Eos % (Auto) % Baso % (Auto) % Neut # (Auto) (1.4-6.5) K/uL Lymph # (Auto) (1.2-3.4) K/uL [place] # (Auto) (0.11-0.59) K/uL Eos # (Auto) (0-0.5) K/uL Baso # (Auto) (0-0.2) K/uL Immature Gran # (Auto) (0.00-0.02) K/uL Sodium (136-145) mmol/L Potassium (3.5-5.1) mmol/L Chloride (98-107) mmol/L Carbon Dioxide (21-32) mmol/L Anion Gap (3-11) BUN (7-18) mg/dl Creatinine (0.6-1.2) mg/dl Est Cr Clr Drug Dosing ml/min Est GFR ( Amer) Est GFR (Non-Af Amer) BUN/Creatinine Ratio (10-20) Glucose (70-99) mg/dl Lactate (0.4-2.0) mmol/L Calcium (8.5-10.1) mg/dl Total Bilirubin (0.2-1) mg/dl AST (15-37) U/L ALT (12-78) U/L Alkaline Phosphatase (45-117) U/L Total Protein (6.4-8.2) gm/dl Albumin (3.4-5.0) gm/dl Globulin (2.5-4.0) gm/dl Albumin/Globulin Ratio (0.9-2) Procalcitonin (0-0.5) ng/ml Urine Color Yellow Urine Appearance Cloudy A (Clear) Urine pH 6.0 (4.5-7.5) Ur Specific [place] 1.014 (1.000-1.030) Urine Protein Negative (Negative) Urine Glucose (UA) Negative (Negative) Urine Ketones Negative (Negative) Urine Blood 1+ H (Negative) Urine Nitrite Negative (Negative) Urine Bilirubin Negative (Negative) Urine Urobilinogen Negative (Negative) Ur Leukocyte Esterase 2+ H (Negative) Urine WBC (Auto) >30 H (0-5) /hpf Urine RBC (Auto) 5-10 H (0-4) /hpf U Hyaline Cast (Auto) 1-5 (0-5) /lpf U Epithel Cells (Auto) >30 H (0-5) /lpf Urine Bacteria (Auto) Negative (Negative) COVID-19 Eval Order SARS-CoV-2 (PCR) (Negative) Influenza Type A (PCR) (Neg) Influenza Type B (PCR) (Neg) RSV (RT-PCR) (Neg) Administered Medications Discontinued Medications Atorvastatin Calcium (At[facility]vastatin 40 Mg Tab) [facility] [place] [place]: 04/10/20 08:59 Last Admin: 03/12/20 08:31 Dose: 40 mg Documented by: [id number] Admin: 03/11/20 12:36 Dose: 40 mg Documented by: [id number] Admin: 03/11/20 07:37 Dose: Not Given Documented by: [id number] Diatrizoate Meglumine (Diatrizoate Meglumine 30% 100ml Vial) 0 ml INSTIL UD PRN ; Protocol PRN Reason: surgical procedure Stop: 03/15/20 11:00 Last Admin: 03/11/20 11:05 Dose: 10 ml Documented by: [id number] Sodium Chloride (Nss 1000ml) 1,000 mls @ 100 mls/hr IV .Q10H [facility] Stop: 04/09/20 09:44 Last Infusion: 03/12/20 11:18 Dose: 0 mls/hr Documented by: [id number] Infusion: 03/12/20 09:07 Dose: 100 mls/hr Documented by: [id number] Infusion: 03/12/20 08:32 Dose: 0 mls/hr Documented by: [id number] Admin: 03/12/20 06:46 Dose: 100 mls/hr Documented by: [id number] Infusion: 03/12/20 06:32 Dose: 100 mls/hr Documented by: [id number] Admin: 03/12/20 03:32 Dose: Not Given Documented by: [id number] Admin: 03/11/20 20:32 Dose: 100 mls/hr Documented by: [id number] Infusion: 03/11/20 20:32 Dose: 100 mls/hr Documented by: [id number] Admin: 03/11/20 14:40 Dose: Not Given Documented by: [id number] Infusion: 03/11/20 12:46 Dose: 100 mls/hr Documented by: [id number] Infusion: 03/11/20 07:30 Dose: 0 mls/hr Documented by: [id number] Admin: 03/11/20 06:39 Dose: 100 mls/hr Documented by: [id number] Infusion: 03/11/20 06:17 Dose: 100 mls/hr Documented by: [id number] Admin: 03/10/20 20:17 Dose: 100 mls/hr Documented by: [id number] Infusion: 03/10/20 20:17 Dose: 0 mls/hr Documented by: [id number] Admin: 03/10/20 10:34 Dose: 100 mls/hr Documented by: [id number] Ceftriaxone Sodium (Rocephin) 1,000 mg in 50 mls @ 100 mls/hr IV NOW STA Stop: 03/10/20 10:22 Last Infusion: 03/10/20 11:04 Dose: 0 mls/hr Documented by: [id number] Admin: 03/10/20 10:34 Dose: 100 mls/hr Documented by: [id number] Acetaminophen (Ofirmev) 1,000 mg in 100 mls @ 400 mls/hr IV NOW STA Stop: 03/10/20 11:53 Last Infusion: 03/10/20 12:25 Dose: 0 mls/hr Documented by: [id number] Admin: 03/10/20 12:11 Dose: 400 mls/hr Documented by: [id number] Ceftriaxone Sodium 1,000 mg/ (Dextrose) 50 mls @ 100 mls/hr IV Q24H [facility]; Protocol Stop: 03/21/20 08:59 Last Infusion: 03/12/20 09:07 Dose: 0 mls/hr Documented by: [id number] Admin: 03/12/20 08:31 Dose: 100 mls/hr Documented by: [id number] Infusion: 03/11/20 08:40 Dose: 0 mls/hr Documented by: [id number] Admin: 03/11/20 07:29 Dose: 100 mls/hr Documented by: [id number] Lisinopril (Lisinopril 40 Mg Tab) 40 mg PO [facility] Stop: 04/10/20 08:59 Last Admin: 03/12/20 08:31 Dose: 40 mg Documented by: [id number] Admin: 03/11/20 12:35 Dose: 40 mg Documented by: [id number] Admin: 03/11/20 07:38 Dose: Not Given Documented by: [id number] Mirtazapine (Mirtazapine Tab 15 Mg Tab) 15 mg PO [facility] Stop: 04/09/20 20:59 Last Admin: 03/11/20 20:33 Dose: 15 mg Documented by: [id number] Admin: 03/10/20 20:17 Dose: 15 mg Documented by: [id number] Oxybutynin Chloride (Oxybutynin Chloride 5 Mg Tab) 10 mg PO [facility] Stop: 04/10/20 13:59 Last Admin: 03/12/20 08:31 Dose: 10 mg Documented by: [id number] Admin: 03/11/20 13:37 Dose: 10 mg Documented by: [id number] Paroxetine HCl (Paroxetine Hcl 20 Mg Tab) 40 mg PO [facility] Stop: 04/10/20 08:59 Last Admin: 03/12/20 08:31 Dose: 40 mg Documented by: [id number] Admin: 03/11/20 12:36 Dose: 40 mg Documented by: [id number] Admin: 03/11/20 07:37 Dose: Not Given Documented by: [id number] Tamsulosin HCl (Tamsulosin Hcl 0.4 Mg Cap) 0.4 mg PO NOW ONE Stop: 03/10/20 15:46 Last Admin: 03/10/20 16:39 Dose: 0.4 mg Documented by: [id number] Tamsulosin HCl (Tamsulosin Hcl 0.4 Mg Cap) 0.4 mg [facility] [place]: 04/10/20 08:59 Last Admin: 03/11/20 07:37 Dose: Not Given Documented by: [id number] Discharge Plan Visit Data Chief Complaint: Illness Stated Complaint: CHILLS ED Provider: Lelo Siu Discharge Problem: Obstruction of left ureteropelvic junction (UPJ) due to stone, Complicated UTI (urinary tract infection) Patient Disposition: Admitted As Inpatient Discharge Instructions Interventions: ED Discharge Assessment Last Done: 03/10/20 14:38
[2020-03-10] MEDS: MIRTAZAPINE TAB 15 MG TAB PO SCH (20:17)
[2020-03-11] MEDS: SODIUM CHLORIDE 0.9% 1000ML 1,000 ML IV SCH ×3 (06:39→20:32)
[2020-03-11 07:03] LABS: Hematocrit (blood only) 39.9 % (37-47); Hemoglobin 13.4 g/dL (12.0-16.0); Mean Corpuscular Hemoglobin 30.8 pg (25-34); Mean Corpuscular Hgb Conc 33.6 g/dL (32-36); Mean Corpuscular Volume 91.7 fL (80-100); Mean Platelet Volume 9.5 fL (7.4-10.4); Platelet Count 301 K/uL (130-400); RDW Coefficient of Variation 15.5 % (11.5-14.5); RDW Standard Deviation 52.6 fL (36.4-46.3); Red Blood Count 4.35 M/uL (4.2-5.4); White Blood Count 7.04 K/uL (4.8-10.8)
[2020-03-11] MEDS: cefTRIAXone SODIUM 1,000 MG in DEXTROSE 5% 50 ML IV SCH (07:29)
[2020-03-11] MEDS: ATORVASTATIN 40 MG TAB PO SCH ×2 (07:37→12:36)
[2020-03-11] MEDS: PARoxetine HCL 20 MG TAB PO SCH ×2 (07:37→12:36)
[2020-03-11] MEDS: lisinopril 40 MG TAB PO SCH ×2 (07:38→12:35)
[2020-03-11 07:47] LABS: BUN Creatinine Ratio 17.9 (10-20); Calcium 8.4 mg/dl (8.5-10.1); Creatinine Clr Calc Pharmacy 67.6 ml/min; Est GFR (African American) 100.6; Est GFR (Non-African American) 86.8; Magnesium 2.1 mg/dl (1.8-2.4); Potassium 4.4 mmol/L (3.5-5.1)
--- NOTE | 2020-03-11 08:08 | Urology Progress Note ---
Date of Service March 11, 2020 Assessment & Plan (1) Obstruction of left ureteropelvic junction (UPJ) due to stone: Admission and Anticipated Discharge Date Admission Date: March 10, 2020 Supervising Physician Co-Signing Physician Notes Agree with above Subjective Patient examined this morning, alert and awake. Non-toxic in appearance. No reported issues overnight, slept well. Currently denies abdominal/flank pain. Denies fevers but does report continued chills with shakiness. Denies hematuria or dysuria. Reports continued urinary frequency/urgency however improved from yesterday. Denies nausea or vomiting. Has not had anything to eat or drink since midnight. Chart review: Afebrile Wbc 7.04 Hgb 13.4 Creatinine 0.61 Urine and blood cultures pending. Patient received IV Ceftriaxone this am around 0730. Denies additional urologic concerns today. Review of Systems Constitutional: as per Subjective / HPI and + chills; no fever Gastrointestinal: as per Subjective / HPI; no nausea and no vomiting Genitourinary: as per Subjective / HPI Neurologic: no dizziness Physical Exam Constitutional: well developed and well nourished; no acute distress and not ill appearing Non-toxic on exam. Respiratory: normal respiratory effort and able to speak in complete sentences; no respiratory distress and no audible wheezes Gastrointestinal (Abdomen): Inspection/Auscultation: abdomen normal to inspection; abdomen not distended Percussion/Palpation: abdomen soft; abdomen nontender and no guarding Psychiatric: Orientation: alert, oriented x 3 and cooperative Affect: euthymic affect Genitourinary: no CVA tenderness Results & Data ([facility]) Vital Signs (Past 12 Hours) Vital Signs Temp Pulse Resp BP Pulse Ox 03/10/20 23:21 36.6 C 60 18 121/76 95 PG Care Time/CCT Total # of Minutes Spent Total Time Spent with Patient: Total time spent is greater than 50% in coordination of care (as documented) at patient's floor/unit and/or counseling patient: Coding Level of Care Code 99219 Subseq Hosp Care Lvl 2 Diagnoses Obstruction of left ureteropelvic junction (UPJ) due to stone N20.1
[2020-03-11] MEDS ORDERED: TAMSULOSIN HCL 0.4 MG CAP PO SCH (09:00)
[2020-03-11] MEDS ORDERED: PROPOFOL IV EMULSION 10 MG/ML 20 ML VIAL IV ONE ×2 (09:34→11:18)
[2020-03-11] MEDS ORDERED: fentaNYL citrate 100 MCG/2 ML VIAL ONE (09:34)
--- NOTE | 2020-03-11 10:25 | History & Physical Bridge Note ---
Date of Service March 11, 2020 History & Physical Bridge Note I have examined the patient, reviewed the History & Physical and in the interval since the performance of the History & Physical I have noted the following changes of clinical significance: no changes noted
--- NOTE | 2020-03-11 10:40 | Anesthesiology Consultation ---
Date of Service March 11, 2020 Assessment & Plan (1) Encounter for pre-operative examination: Chart Review Chart Review: Acceptable Risk for Surgery History Surgery Operation Date: 03/11/20 09:50 Proposed Procedures p Cystoscopy, Left Stent Insertion, Left Retrograde Pyelogram - Douglas Lozano MD Height/Weight Height: 5 ft 2 in Weight: 65.771 kg Allergies Allergy/AdvReac Type Severity Reaction Status Date / Time cephalexin AdvReac Mild YEAST Verified 03/10/20 10:45 INFECT Influenza Virus Vaccines AdvReac Mild GOT THE Verified 03/10/20 10:45 FLU YRS AGO Medications Home Medications Medication Instructions Recorded Confirmed Last Taken atorvastatin 40 mg PO QAM 01/03/18 03/10/20 03/10/20 hydrochlorothiazide 12.5 mg PO QAM 01/03/18 03/10/20 03/09/20 lisinopril 40 mg PO QAM 01/03/18 03/10/20 03/10/20 paroxetine HCl [Paxil] 40 mg PO QAM 01/03/18 03/10/20 03/10/20 oxybutynin chloride 10 mg 10 mg PO QAM 06/12/19 03/10/20 03/10/20 tablet,extended release 24 hr mirtazapine [Remeron] 15 mg PO HS 03/05/20 03/10/20 03/09/20 ondansetron HCl 4 mg PO Q6 PRN 03/05/20 03/10/20 Unknown sulfamethoxazole-trimethoprim 1 tab PO Q12H 7 Days #14 tab 03/05/20 03/10/20 03/09/20 [Bactrim DS] triamcinolone acetonide 1 applic TOPICAL BID PRN 03/05/20 03/10/20 03/09/20 Active Medications Generic Name Dose Route Start Last Admin Trade Name Freq PRN Reason Stop Dose Admin Atorvastatin Calcium 40 mg 03/11/20 09:00 03/11/20 07:37 Atorvastatin 40 Mg Tab PO 04/10/20 08:59 Not Given QAM SKYLER Sodium Chloride 1,000 mls @ 100 mls/hr 03/10/20 09:45 03/11/20 07:30 Nss 1000ml IV 04/09/20 09:44 0 mls/hr .Q10H SKYLER Infusion Ceftriaxone Sodium 1,000 mg/ 50 mls @ 100 mls/hr 03/11/20 09:00 03/11/20 08:40 Dextrose IV 03/21/20 08:59 Infused Q24H SKYLER Infusion Protocol Lisinopril 40 mg 03/11/20 09:00 03/11/20 07:38 Lisinopril 40 Mg Tab PO 04/10/20 08:59 Not Given QAM SKYLER Mirtazapine 15 mg 03/10/20 21:00 03/10/20 20:17 Mirtazapine Tab 15 Mg Tab PO 04/09/20 20:59 15 mg HS SKYLER Administration Paroxetine HCl 40 mg 03/11/20 09:00 03/11/20 07:37 Paroxetine Hcl 20 Mg Tab PO 04/10/20 08:59 Not Given QAM SKYLER Tamsulosin HCl 0.4 mg 03/11/20 09:00 03/11/20 07:37 Tamsulosin Hcl 0.4 Mg Cap PO 04/10/20 08:59 Not Given QAM SKYLER NPO Date Last Intake of Fluids: 03/10/20 Time Last Intake of Fluids: 23:00 Date Last Intake of Solids: 03/10/20 Time Last Intake of Solids: 23:00 Past Medical History Medical History Anxiety Cancer SKIN CANCER-ARM Deep vein thrombosis 20 YEARS AGO-NO ISSUES SINCE Degenerative disc disease Depression Diverticulitis GERD (gastroesophageal reflux disease) Gout Hyperlipidemia Hypertension Kidney stones HX Osteoarthritis Urge urinary incontinence Past Family History Family History Sister Family history of diabetes mellitus Mother Family history of diabetes mellitus Past Surgical History Surgical History H/O oophorectomy History of appendectomy History of bilateral tubal ligation History of bowel resection History of cataract surgery LEFT History of cholecystectomy History of colonoscopy History of colostomy AND REVERSAL History of dilatation and curettage History of gastric bypass History of tonsillectomy History of tooth extraction History of total knee replacement LEFT S/P panniculectomy S/P TKR (total knee replacement) Social History Smoking Status: Current every day smoker tobacco type: cigarettes Smoking cigarettes per day: 1/2 pack. Do You Dip or Chew Tobacco: No Hx Alcohol Use: No Hx Substance Use: No substance use type: does not use Physical Exam Vital Signs Last Vital Signs Temp 37 C 03/11/20 08:49 Pulse 53 L 03/11/20 08:49 Resp 20 03/11/20 08:49 BP 137/60 03/11/20 08:49 Pulse Ox 97 03/11/20 08:49 Testing Laboratory Results 03/11/20 06:38 03/11/20 06:38 Urine Color Yellow 03/10/20 11:00 Urine Appearance Cloudy (Clear) A 03/10/20 11:00 Urine pH 6.0 (4.5-7.5) 03/10/20 11:00 Ur Specific [place] 1.014 (1.000-1.030) 03/10/20 11:00 Urine Protein Negative (Negative) 03/10/20 11:00 Urine Glucose (UA) Negative (Negative) 03/10/20 11:00 Urine Ketones Negative (Negative) 03/10/20 11:00 Urine Nitrite Negative (Negative) 03/10/20 11:00 Ur Leukocyte Esterase 2+ (Negative) H 03/10/20 11:00 Urine WBC (Auto) >30 /hpf (0-5) H 03/10/20 11:00 Urine RBC (Auto) 5-10 /hpf (0-4) H 03/10/20 11:00 U Hyaline Cast (Auto) 1-5 /lpf (0-5) 03/10/20 11:00 U Epithel Cells (Auto) >30 /lpf (0-5) H 03/10/20 11:00 Urine Bacteria (Auto) Negative (Negative) 03/10/20 11:00
[2020-03-11] MEDS ORDERED: ONDANSETRON INJ 2 MG/ML 2 ML VIAL IV PRN (10:42)
[2020-03-11] MEDS ORDERED: ePHEDrine sulfate 50 MG/ML AMP IV PRN (10:42)
[2020-03-11] MEDS ORDERED: fentaNYL citrate 100 MCG/2 ML VIAL IV PRN (10:42)
[2020-03-11] MEDS ORDERED: ATROPINE SULFATE 0.1 MG/ML 10ML SYR IV PRN (10:42)
[2020-03-11] MEDS ORDERED: DIATRIZOATE MEGLUMINE 30% 100ML VIAL INSTIL PRN (11:01)
[2020-03-11] MEDS ORDERED: GLYCOPYRROLATE 0.2 MG/ML VIAL ONE (11:18)
[2020-03-11] MEDS ORDERED: ePHEDrine sulfate 50 MG/ML AMP ONE (11:18)
[2020-03-11] MEDS ORDERED: LIDOCAINE HCL 2% 2 ML VIAL/AMP(20MG/ML) INFIL ONE (11:18)
--- NOTE | 2020-03-11 11:22 | Operative Report ---
PG Post Operative Report Pre & Post Diagnosis Operation Date: 03/11/20 09:50 Pre-Op Diagnosis: URETERAL STONE Post-Op Diagnosis: URETERAL STONE I identified the patient and participated in the time-out.: Yes Procedure Operation Date: 03/11/20 09:50 Actual Procedures p Cystoscopy, Left Stent Insertion, Left Retrograde Pyelogram(Not Applicable) - Douglas Lozano MD Surgeon Douglas Lozano MD Car Loader None Estimated Blood Loss 0 Findings See Below Cystoscopy showed a normal urethra Bladder showed some inflammatory change there were no bladder tumors left retrograde showed left hydronephrosis Specimens None Drains 6 [place] by 24 cm left ureteral stent Anesthesia Type MAC Complications none Disposition Accompanied Patient To Recovery: Yes Disposition: Recovery Room Indications 79-year-old white female with obstructing left ureteral stone for stent placement Description of Procedure After the induction of an adequate level of intravenous sedation and appropriate timeout patient was placed in the dorsolithotomy position. Lower abdomen and genitalia were prepped with Hibiclens draped in a sterile fashion. Using a 22 [place] cystoscope routine cystoscopic exam was formed the above-noted findings. Open-ended catheter was passed up the left ureter and a left retrograde pyelogram was performed. Next through the open-ended catheter a 0.038 guidewire was passed under fluoroscopic guidance to position in the renal pelvis. The open-ended catheter was removed and a 6 [place] by 24 cm stent was passed up the left ureter under fluoroscopic guidance to position in the renal pelvis confirmed by fluoroscopy guidewire was removed there was good curl at the bladder level. Patient's bladder was then drained cystoscope and sheath removed. All needle sponge and instrument counts were correct at the end of the case. Patient tolerated the procedure well and was taken recovery in stable condition I attest to the content of the Intraoperative Record and any orders documented therein. Any exceptions are noted below.
[2020-03-11] MEDS ORDERED: PHENYLEPHRINE 100MCG/ML 5ML SYR ONE (11:26)
--- NOTE | 2020-03-11 11:28 | Anesthesiology Progress Note ---
Date of Service March 11, 2020 Anesthesia Post Procedure Vital Signs Vital Signs: Temp Pulse Pulse Pulse Resp BP BP 03/11/20 11:20 95 H 17 139/69 03/11/20 11:14 36.8 C 92 H 12 131/57 L 03/11/20 08:49 37 C 53 L 20 137/60 03/11/20 07:30 36.8 C 56 L 16 131/79 03/10/20 23:21 36.6 C 60 18 121/76 03/10/20 16:14 36.9 C 60 18 135/78 03/10/20 14:50 36.6 C 63 14 154/77 H 03/10/20 14:30 67 16 130/56 L 03/10/20 12:30 36.9 C 71 16 135/97 03/10/20 12:12 74 14 149/90 H 03/10/20 12:11 84 18 149/90 H Pulse Ox 03/11/20 11:20 94 03/11/20 11:14 98 03/11/20 08:49 97 03/11/20 07:30 96 03/10/20 23:21 95 03/10/20 16:14 98 03/10/20 14:50 96 03/10/20 14:30 97 03/10/20 12:30 95 03/10/20 12:12 97 03/10/20 12:11 96 Transfer of Care Handoff Completed per policy Notes Mental Status: alert / awake / arousable Patient Amnestic to Procedure: Yes Nausea / Vomiting: adequately controlled Pain: adequately controlled Airway Patency, RR, SpO2: stable & adequate BP & HR: stable & adequate Hydration State: stable & adequate Anesthetic Complications: no major complications apparent
--- NOTE | 2020-03-11 11:48 | Fluoroscopy Report ---
FL retrograde includes kub HISTORY: 79 years-old Female CYSTO, LEFT STENT/RETROGRADE left-sided cystourethrogram COMPARISON: CT abdomen and pelvis 07/25/2016 TECHNIQUE: 5 spot fluoroscopic images of the left abdomen and pelvis were obtained utilizing 11.5 sec onds fluoroscopy time FINDINGS: A guidewire is noted within the left ureter. Retrograde injection of contrast into the left ureter an d renal collecting system. Left-sided hydronephrosis with blunting of the calyces. Notably there is p rominent dilation of the superior pole collecting system. There are a few filling defects noted withi n the left ureter which may reflect air bubbles. Narrowing of the proximal left ureter. The last imag e demonstrates the proximal portion of a left ureteral stent. The distal aspect is not imaged. IMPRESSION: Fluoroscopic assistance as above. ACT 112: Negative or not required by law. The above report was generated using voice recognition software. It may contain grammatical, syntax o r spelling errors. Electronically signed by: Bonifacio Nicolas M.D. 03/11/2020 11:46 AM
--- NOTE | 2020-03-11 13:28 | Hospitalist Progress Note ---
Date of Service March 11, 2020 Assessment & Plan (1) Obstruction of left ureteropelvic junction (UPJ) due to stone: (2) Complicated UTI (urinary tract infection): This is a 79yo F with a PMH of kidney stones, HTN, HLD, depression, anxiety, urinary incontinence and other medical problems listed below who presents with chills that started this morning with recently diagnosed large left sided kidney stones with UTI. -Recently diagnosed with large left sided kidney stone and referred to ED by PCP on 03/05/20 -Urology felt it was appropriate for outpatient follow-up and Bactrim was continued at time of discharge but 03/05 urine cx grew E.Coli resistant to Bactrim and Fluoroquinolones, was changed to Cefdinir on 03/07/20 -Developed chills but afebrile, no leukocytosis. Lactate wnl. UA with evidence of infection - repeat urine culture pending -KUB with no change in a 1.9 x 0.8 cm left ureteropelvic junction calculus. Also with 1 cm calculus within the lower pole of the left kidney -Given Rocephin in ED and continued. Follow urine culture -Urology consulted -s/p cystoscopy and left-sided ureteral stent placement -DC in am (3) Hypertension: Normotensive. Continue lisinopril. Not currently taking hctz although prescribed. Instructed to follow up with PCP to discuss further (4) Anxiety: (5) Hyperlipidemia: Continue statin (6) Depression: Continue Paxil, Remeron HS (7) Urge urinary incontinence: Continue oxybutynin QAM DVT Ppx: SCDs Code status: FULL PCP: Elisabeth Dispo: Admitted to med/surg. Labs checked ROS-No Headache, No Visual Changes, No Nausea, No Vomiting, No Fever, No Chills, No Neck Pain or Stiffness, No Chest Pain, No Palpitations, No SOB, No ZAFAR, No Cough, No Sputum, No Wheezing, No Abdominal Pain, No Diarrhea, No Hematemesis, No Hemoptysis, No Unexpected Weight Loss, No Flank pain, No Melena, No Hematochezia, No Frequency, No Urgency, No Burning, No Hematuria, No Rashes, No Diaphoresis. Appetite is Normal Physical Exam Gen-AAO x 3, NAD, Afebrile, poor dentition Head-NCAT, EOMI, PERRLA, Anicteric Sclera, No Posterior Pharyngeal Erythema Neck-Supple, No JVD, No Thyromegaly, No Masses, No LAD, No Bruits Lungs-Clear to Auscultation Bilaterally, No Rales, No Rhonchi, No Wheezing, No Crepitus Chest-No S4, +S1, +S2, No S3, No Murmurs, No Rubs, No Gallops, No Ectopy Abdomen-Soft, Bowel Sounds Present, Non Tender, Non Distended, No Hepatomegaly, No Splenomegaly, No Palpable Masses, No Rebound, No Rigidity, No Guarding Musculoskeletal-Full Range of Motion Bilaterally, No CVAT Extremities-No Cyanosis, No Clubbing, No Edema Nuero-Cranial Nerves II-XII grossly intact, Motor WNL, DTRs WNL, Strength WNL, Non Focal Psych-Normal Mood Admission and Anticipated Discharge Date Admission Date: March 10, 2020 Results & Data Results & Data ([facility]) Vital Signs (Past 12 Hours) Vital Signs Temp Pulse Pulse Resp BP Pulse Ox 03/11/20 12:47 36.5 C 73 18 141/72 H 98 03/11/20 12:30 36.5 C 72 16 142/73 H 97 03/11/20 12:15 36.8 C 18 148/72 H 96 03/11/20 12:00 75 16 150/76 H 94 03/11/20 11:50 85 17 161/75 H 97 03/11/20 11:40 37.1 C 89 17 157/73 H 97 03/11/20 11:30 37.1 C 93 H 17 154/71 H 94 03/11/20 11:20 95 H 17 139/69 94 03/11/20 11:14 36.8 C 92 H 12 131/57 L 98 03/11/20 08:49 37 C 53 L 20 137/60 97 03/11/20 07:30 36.8 C 56 L 16 131/79 96
[2020-03-11] MEDS ORDERED: OXYBUTYNIN CHLORIDE 5 MG TAB PO SCH (13:30)
[2020-03-11] MEDS: OXYBUTYNIN CHLORIDE 5 MG TAB PO SCH (13:37)
--- NOTE | 2020-03-11 15:48 | Electrocardiogram Report ---
Test Reason : Blood Pressure : / mmHG Vent. Rate : 071 BPM Atrial Rate : 071 BPM P-R Int : 194 ms QRS Dur : 076 ms QT Int : 392 ms P-R-T Axes : 070 016 099 degrees QTc Int : 425 ms Sinus rhythm with Premature supraventricular complexes Nonspecific T wave abnormality Abnormal ECG When compared with ECG of 14-SEP-2016 13:32, Premature supraventricular complexes are now Present T wave inversion now evident in Lateral leads QT has lengthened Confirmed by Tahir Bingham ([id number]) on 03/11/2020 3:47:54 PM Referred By: REFERRED SELF Confirmed By:Tahir Bingham
[2020-03-11] MEDS: MIRTAZAPINE TAB 15 MG TAB PO SCH (20:33)
[2020-03-12] MEDS: SODIUM CHLORIDE 0.9% 1000ML 1,000 ML IV SCH ×2 (03:32→06:46)
[2020-03-12 06:25] LABS: Hematocrit (blood only) 41.7 % (37-47); Hemoglobin 13.7 g/dL (12.0-16.0); Mean Corpuscular Hemoglobin 30.4 pg (25-34); Mean Corpuscular Hgb Conc 32.9 g/dL (32-36); Mean Corpuscular Volume 92.7 fL (80-100); Mean Platelet Volume 9.8 fL (7.4-10.4); Platelet Count 305 K/uL (130-400); RDW Coefficient of Variation 15.6 % (11.5-14.5); RDW Standard Deviation 52.7 fL (36.4-46.3); White Blood Count 8.53 K/uL (4.8-10.8)
[2020-03-12 06:54] LABS: BUN Creatinine Ratio 14.6 (10-20); Calcium 8.8 mg/dl (8.5-10.1); Creatinine Clr Calc Pharmacy 63.5 ml/min; Est GFR (African American) 98.6; Potassium 3.9 mmol/L (3.5-5.1)
--- NOTE | 2020-03-12 08:24 | Urology Progress Note ---
Date of Service March 12, 2020 Assessment & Plan (1) Obstruction of left ureteropelvic junction (UPJ) due to stone: (2) Complicated UTI (urinary tract infection): 79 year-old female patient, with multiple comorbidities, admitted with obstructing 1.9 cm left ureteropelvic junction calculus and UTI. -POD #1 cystoscopy, left ureteral stent placement with Dr. Lozano. -Patient clinically progressing as expected. -Labs reviewed - creatinine and white count stable. -Urine culture 1 E.Coli, repeat urine culture consistent with contamination. -Blood cultures negative after 24 hours. -Continue with supportive care and antibiotic therapy. -Would recommend home with at least 7-10 days antibiotic therapy. -Okay from perspective for discharge. -Will arrange outpatient follow-up with urology service to discuss definitive stone management. -Expected clinical course reviewed with patient, all questions answered. Thank you for allowing us to participate in the acute care of Mrs. Green. Please reconsult us with additional questions, concerns or changes in patient status. Admission and Anticipated Discharge Date Admission Date: March 10, 2020 Subjective Patient POD#1 cystoscopy, left ureteral stent placement. Patient examined this morning, alert, awake, and comfortable. She slept well overnight. Currently denies abdominal/flank pain. Denies fevers or chills. Denies hematuria or dysuria. Reports continued urinary frequency/urgency with baseline urgency incontinence. Has been up ambulating without dizziness/lightheadedness. Chart review: Afebrile Wbc 8.53 Hgb 13.7 Creatinine 0.65 Urine culture 03/05 with E.Coli, resistant to Bactrim and fluoroquinolones. Repeat urine culture with high counts probable skin gina. Blood cultures no growth after 24 hours. Patient currently on IV Ceftriaxone. Denies additional urologic concerns today. Review of Systems Constitutional: as per Subjective / HPI; no fever and no chills Ear, Nose, Mouth, Throat: as per Subjective / HPI; no dizziness Gastrointestinal: as per Subjective / HPI; no nausea and no vomiting Genitourinary: as per Subjective / HPI Musculoskeletal: as per Subjective / HPI Physical Exam Constitutional: well developed and well nourished; no acute distress and not ill appearing Respiratory: normal respiratory effort and able to speak in complete sentences; no respiratory distress and no audible wheezes Gastrointestinal (Abdomen): Inspection/Auscultation: abdomen normal to inspection; abdomen not distended Percussion/Palpation: abdomen soft; abdomen nontender and no guarding Psychiatric: Orientation: alert, oriented x 3 and cooperative Affect: euthymic affect Genitourinary: no CVA tenderness Results & Data ([facility]) Vital Signs (Past 12 Hours) Vital Signs Temp Pulse Resp BP Pulse Ox 03/12/20 07:46 36.5 C 58 L 18 163/63 H 96 03/12/20 02:56 36.5 C 62 18 167/84 H 94 03/11/20 23:23 36.8 C 60 18 167/79 H 95 PG Care Time/CCT Total # of Minutes Spent Total Time Spent with Patient: Total time spent is greater than 50% in coordination of care (as documented) at patient's floor/unit and/or counseling patient: Coding Level of Care Code 91490 Subseq Hosp Care Lvl 2 Diagnoses Obstruction of left ureteropelvic junction (UPJ) due to stone N20.1 Complicated UTI (urinary tract infection) N39.0
[2020-03-12] MEDS: cefTRIAXone SODIUM 1,000 MG in DEXTROSE 5% 50 ML IV SCH (08:31)
[2020-03-12] MEDS: OXYBUTYNIN CHLORIDE 5 MG TAB PO SCH (08:31)
[2020-03-12] MEDS: lisinopril 40 MG TAB PO SCH (08:31)
[2020-03-12] MEDS: PARoxetine HCL 20 MG TAB PO SCH (08:31)
[2020-03-12] MEDS: ATORVASTATIN 40 MG TAB PO SCH (08:31)
--- NOTE | 2020-03-12 10:26 | Discharge Summary ---
Date of Service March 12, 2020 Admission HPI Per Admitting Provider This is a 79yo F with a PMH of kidney stones, HTN, HLD, depression, anxiety, urinary incontinence and other medical problems listed below who presents with chills that started this morning. Was diagnosed with large left sided kidney stone and referred to ED by PCP on 03/05/20. Urology felt it was appropriate for patient to follow up in outpatient setting and Bactrim was continued at time of discharge. When urine culture from 03/05 grew E.Coli resistant to Bactrim and Fluoroquinolones, was changed to Cefdinir on 03/07/20, which patient states she has taken 1 day of. Was due for OP urology follow up today but woke up with chills so came to ED for further evaluation. Denies fever, lightheadedness, headache, chest pain, SOB, nausea, vomiting, abdominal pain, dysuria, hematuria, diarrhea or constipation. In ED, patient is afebrile and hemodynamically stable. No leukocytosis. Hgb stable at 15. Electrolytes wnl. Kidney function at baseline. Lactate wnl. UA with evidence of infection - urine culture pending. KUB with no change in a 1.9 x 0.8 cm left ureteropelvic junction calculus. Also with 1 cm calculus within the lower pole of the left kidney. Probable right renal calculi. Given Rocephin and 1 L NSS in ED. Urology consulted and will see patient today with plans for intervention tomorrow. Admission Exam Per Admitting Provider General Appearance: WD/WN, vitals as above, NAD, sitting up in bed, pleasant, conversing easily Head: normocephalic, atraumatic Eyes: normal inspection, PERRL, conjunctivae normal, anicteric sclerae ENT: external ear and nose normal, oropharynx normal Neck: normal visual inspection, trachea midline, no thyromegaly Respiratory: normal respiratory effort, clear to auscultation, no wheeze, rales or rhonchi. No accessory muscle use Cardiovascular: regular rate, rhythm, no murmur, normal peripheral pulses, no BLE edema. Vessels: no JVD Chest: normal inspection of chest Abdomen/GI: normal bowel sounds, soft, nontender, no hepatosplenomegaly Extremities/Musculoskeletal: no cyanosis or clubbing, extremities motor strength 5/5 Neurologic: PERRL, EOMI, accommodation nl, no face palsy, no dysarthria, CN's II-XI intact bilaterally and moves all extremities Psychiatric: A+Ox3, euthymic affect Skin: no rashes, normal color, warm/dry Principal Diagnosis (1) Obstruction of left ureteropelvic junction (UPJ) due to stone: (2) Complicated UTI (urinary tract infection): (3) Hypertension: (4) Anxiety: (5) Hyperlipidemia: (6) Depression: (7) Urge urinary incontinence: Discharge Exam See below Discharge Data Allergies Allergy/AdvReac Type Severity Reaction Status Date / Time cephalexin AdvReac Mild YEAST Verified 03/10/20 10:45 INFECT Influenza Virus Vaccines AdvReac Mild GOT THE Verified 03/10/20 10:45 FLU YRS AGO Consultations 03/10/20 12:55 Consult Urology Stat ED Decision to Admit Stat 03/10/20 15:03 Consult Urology Routine Procedures Performed Operation Date: 03/11/20 09:50 Actual Procedures p Left Stent Insertion, (Not Applicable) - Douglas Lozano MD s Cystoscopy Left Retrograde Pyelogram(Not Applicable) - Douglas Lozano MD Ordered Studies 03/11/20 09:50 FL retrograde includes kub Routine Current Diagnoses Hyperlipidemia, unspecified (03/10/20) Major depressive disorder, single episode, unspecified (03/10/20) Anxiety disorder, unspecified (03/10/20) Essential (primary) hypertension (03/10/20) Calculus of ureter (03/10/20) Urinary tract infection, site not specified (03/10/20) Urge incontinence (03/10/20) Encounter for other preprocedural examination (03/10/20) Allergies cephalexin Adverse Reaction (Mild, Verified 03/10/20 10:45) YEAST INFECT Influenza Virus Vaccines Adverse Reaction (Mild, Verified 03/10/20 10:45) GOT THE FLU YRS AGO Height/Weight/Isolation Height 5 ft 2 in Weight 65.771 kg Chemistry 03/10/20 03/11/20 03/12/20 09:59 06:38 06:04 Sodium 136 140 139 Potassium 4.3 4.4 3.9 Chloride 103 110 H 107 Carbon Dioxide 28 26 27 Anion Gap 5.0 4.0 5.0 BUN 14 11 10 Creatinine 0.69 0.61 0.65 Glucose 109 H 98 94 Urinalysis 03/10/20 11:00 Urine Color Yellow Urine Appearance Cloudy A Urine pH 6.0 Ur Specific [place] 1.014 Urine Protein Negative Urine Glucose (UA) Negative Urine Ketones Negative Urine Blood 1+ H Urine Nitrite Negative Urine Bilirubin Negative Microbiology 03/10/20 11:00 Urine,Clean Catch Urine Culture - Final More than three types of organisms present, all high counts mixed probable skin gina - No further identifications or sensitivities to follow. 03/10/20 09:59 Blood Aerobic Blood Culture - Preliminary No growth in Aerobic bottle after 24 hours. 03/10/20 09:59 Blood Anaerobic Blood Culture - Preliminary No growth in Anaerobic bottle after 24 hours. 03/10/20 10:15 Blood Aerobic Blood Culture - Preliminary No growth in Aerobic bottle after 24 hours. 03/10/20 10:15 Blood Anaerobic Blood Culture - Preliminary No growth in Anaerobic bottle after 24 hours. Hospital Course (1) Obstruction of left ureteropelvic junction (UPJ) due to stone: (2) Complicated UTI (urinary tract infection): This is a 79yo F with a PMH of kidney stones, HTN, HLD, depression, anxiety, urinary incontinence and other medical problems listed below who presents with chills that started this morning with recently diagnosed large left sided kidney stones with UTI. -Recently diagnosed with large left sided kidney stone and referred to ED by PCP on 03/05/20 -Urology felt it was appropriate for outpatient follow-up and Bactrim was continued at time of discharge but 03/05 urine cx grew E.Coli resistant to Bactrim and Fluoroquinolones, was changed to Cefdinir on 03/07/20 -Developed chills but afebrile, no leukocytosis. Lactate wnl. UA with evidence of infection - repeat urine culture pending -KUB with no change in a 1.9 x 0.8 cm left ureteropelvic junction calculus. Also with 1 cm calculus within the lower pole of the left kidney -Given Rocephin in ED and continued. DC home on 10 days of Cefdinir -Urology on case -s/p cystoscopy and left-sided ureteral stent placement -DC today (3) Hypertension: Normotensive. Continue lisinopril. Not currently taking hctz although prescribed. Instructed to follow up with PCP to discuss further (4) Anxiety: (5) Hyperlipidemia: Continue statin (6) Depression: Continue Paxil, Remeron HS (7) Urge urinary incontinence: Continue oxybutynin QAM DVT Ppx: SCDs Code status: FULL PCP: Elisabeth Dispo: DC today Labs checked ROS-No Headache, No Visual Changes, No Nausea, No Vomiting, No Fever, No Chills, No Neck Pain or Stiffness, No Chest Pain, No Palpitations, No SOB, No ZAFAR, No Cough, No Sputum, No Wheezing, No Abdominal Pain, No Diarrhea, No Hematemesis, No Hemoptysis, No Unexpected Weight Loss, No Flank pain, No Melena, No Hematochezia, No Frequency, No Urgency, No Burning, No Hematuria, No Rashes, No Diaphoresis. Appetite is Normal Physical Exam Gen-AAO x 3, NAD, Afebrile, poor dentition Head-NCAT, EOMI, PERRLA, Anicteric Sclera, No Posterior Pharyngeal Erythema Neck-Supple, No JVD, No Thyromegaly, No Masses, No LAD, No Bruits Lungs-Clear to Auscultation Bilaterally, No Rales, No Rhonchi, No Wheezing, No Crepitus Chest-No S4, +S1, +S2, No S3, No Murmurs, No Rubs, No Gallops, No Ectopy Abdomen-Soft, Bowel Sounds Present, Non Tender, Non Distended, No Hepatomegaly, No Splenomegaly, No Palpable Masses, No Rebound, No Rigidity, No Guarding Musculoskeletal-Full Range of Motion Bilaterally, No CVAT Extremities-No Cyanosis, No Clubbing, No Edema Nuero-Cranial Nerves II-XII grossly intact, Motor WNL, DTRs WNL, Strength WNL, Non Focal Psych-Normal Mood Total Time Total Time Spent Total Time Spent (In Minutes): 45 mins Total Time Includes: Examination of the Patient, Discharge Planning, Medication Reconciliation and Communication With Other Providers Discharge Plan Discharge Items Patient Disposition: Home - Self-Care Reason For Visit: URETERAL STONE Discharge Diagnosis: (1) Obstruction of left ureteropelvic junction (UPJ) due to stone: (2) Complicated UTI (urinary tract infection): (3) Hypertension: (4) Anxiety: (5) Hyperlipidemia: (6) Depression: (7) Urge urinary incontinence: Activity: Resume your previous activity Lifting: Gradually increase as tolerated Bathing: No limitations Sexual Activity: When tolerated Exercise/Sports: Gradually increase as tolerated Driving/Machine Use: No limitations Weightbearing: Full weightbearing Non-emergency contact: Primary Care Provider and Urologist Call non-emergency contact if: you have any medication questions Follow-up/Referrals: Douglas Lozano MD [Physician] - (Call for appointment) Debo Barber MD [Primary Care Provider] - Diet: Heart Healthy Addtl Attending Provider Instructions: None Addtl Lobby Attendant Provider Instructions: Please take all medications as prescribed. We will contact you to schedule an appointment with the urology team. Please call our office at [phone] with any questions, concerns or need to reschedule appointments for any reason. We are happy to assist you. While you have a ureteral stent in place: Some discomfort is normal. Certain movements may trigger pain or a feeling that you need to urinate. You may also feel mild soreness or pressure before or during urination. These symptoms should go away a few days after the stent is removed. Your urine may be slightly pink or red. This is due to bleeding caused by minor irritation from the stent. This may happen on and off while you have the stent, it is not harmful and is to be expected. Medication to help minimize discomfort or bladder spasms, or to prevent infection may be prescribed. Take this as directed. Drink plenty of fluids to help flush out your urinary tract. If you go home with a catheter, wash with soapy water and a fresh washcloth twice daily. We recommend mild bar soap such as Dial or Dove. How long will you need a stent? We did not treat your stone during your admission. You will have a follow-up outpatient with our office to discuss options for stone treatment. Your stent will remain in place during this time. The stent is often taken out after the blockage in the ureter is treated or the ureter has healed. This may take 1-2 weeks, or longer. If a stent is needed for a longer period of time, it may need to be exchanged every few months. Likely prior to your followup appointment you will be asked to get an X-ray, please complete this the night before or morning of your appointment. When to call [facility] [place] Urology at [phone]: Your urine contains heavy blood clots You are constantly leaking urine Fever of 101F or higher, chills, nausea, or vomiting Your pain is not relieved with medication The end of the stent comes out of your urethra Pending Studies at Discharge: No Stand-Alone Forms: My [facility], Smoking Cessation Medications and DC Order Prescriptions: New cefdinir 300 mg capsule 300 mg PO Q12H 8 Days Qty: 16 RF: 0 Continued oxybutynin chloride 10 mg tablet extended release 24hr 10 mg PO QAM RF: 0 atorvastatin 40 mg Tablet 40 mg PO QAM RF: 0 hydrochlorothiazide 12.5 mg Capsule 12.5 mg PO QAM RF: 0 paroxetine HCl [Paxil] 40 mg Tablet 40 mg PO QAM RF: 0 lisinopril 40 mg Tablet 40 mg PO QAM RF: 0 ondansetron HCl 4 mg tablet 4 mg PO Q6 PRN (Reason: Nausea) RF: 0 triamcinolone acetonide 0.1 % cream 1 applic TOPICAL BID PRN (Reason: flareups) RF: 0 mirtazapine [Remeron] 15 mg tablet 15 mg PO HS RF: 0 Discontinued sulfamethoxazole-trimethoprim [Bactrim DS] 800-160 mg tablet 1 tab PO Q12H 7 Days Qty: 14 RF: 0 Discharge Orders: Discharge Order (Routine); Ordered 03/12/20 Ordered By: Sinan Diehl Admission Data Admit Date/Time: 03/10/20 13:10 Attending Provider: Sinan Diehl Admit Provider: Guillermo Phan Primary Care Provider: Debo Barber Other Providers: David Ba ; Guillermo Phan ; Douglas Lozano
== END 2020-03-12 12:48 | disposition home or self-care (01) | DRG 660 ==
LOC: ED 09:27 → 3W 13:10 → SUATTDRO 13:10 → 3W 14:38

== ENCOUNTER 2021-11-08 08:56 | Inpatient (IN) ==
--- NOTE | 2021-11-08 08:53 | Emergency Department Note ---
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 No reported falls or trauma. The patient does take a baby aspirin no prior history of CVA. There was the possibility the patient's last known well was earlier this morning as the patient was found slumped in a chair with her dentures and hand with the tho ught to be that the patient must of gotten up from bed to obtain her dentures. This typically occurs anywhere from 4 to 6 AM in the morning. No reported falls or trauma. The patient's BSG was 242 and the patient's blood pressure was in the 150s systolic. Afebrile. Patient was immediately taken to CT scan and code stroke was initiated prior to the patient's arrival. I did speak to the patient's daughter after the patient had already presented and stated that she had checked on her little bit before 8:00. She notes that the patient was unable to communicate or move and thus called 911. ROS: Unable to obtain secondary to clinical condition. Past medical history: See below Surgical history: See below Social history: See below Physical Exam: GENERAL: Mild distress, nasal trumpet in right nares, nasal cannula in place. EYE EXAM: Normal conjunctiva. PERRL, no anisocoria and EOM's grossly intact w/o pain. NECK: Supple, no nuchal rigidity, no adenopathy, non-tender. No signs of men ingismus. FROM of the neck with good chin to chest and neck extension. No stridor. LUNGS: Clear to auscultation. Normal chest wall mechanics. HEART: Regular irregular, no MRG. ABDOMEN: Abdomen soft, non-tender, normo-active bowel sounds, no masses, no rebound or guarding. BACK: No CVA TTP. SKIN: No rashes and no bruising. UPPER EXTREMITIES: Upper extremities are grossly normal. LOWER EXTREMITIES: Grossly normal, no edema. NEURO EXAM: Alert able to move left upper and left lower extremity, right-sided hemiparesis with aphasia. Differential diagnoses: Infection, dehydration, metabolic abnormality, hypo/hyperglycemia, electrolyte disturbance, anemia, hypoxia, cardiac sources, intracerebral event, toxicologic, neurologic, as well as other pathologies. Course: Patient was seen and evaluated the bedside. Full history physical exam was performed. EKG interpreted by me A. fib rate of 90, normal axis. Imaging Studies: See Below Cardiac monitoring: An order was placed for continuous cardiac monitoring. The monitor shows a rate of 88 with sinus rhythm. MDM: Patient was seen due to concern for strokelike symptoms. I did evaluate the patient as the patient presented in the ambulance bay and the patient was aphasic with right-sided deficits. Patient did have blood work completed along with CT head and CT angiography head and neck. I did speak with Dr. Brown and we both reviewed the patient's noncontrast CT of the head which did show concern for cerebral infarct. After further discussion with Dr. Santo she stated that given the dense area of infarct she would not recommend TN K and does not think embolectomy or other catheter directed management would be of benefit for the patient given her significant area of infarct and significant deficits. She recommends comfort measures. I did speak to the patient's daughter Karlene at length about the recommendations as well as the patient's symptoms and concern on CAT scan who was in agreement with plan of care. The patient is DNR/DNI. No aggressive interventions at this time. The patient has a white count of 11 with a normal H&H and platelet count. The patient's kidney function was unremarkable with mild hyponatremia 131. Troponin elevated at 20.7. COVID-negative. CT reads did show large subacute left MCA t erritory infarct with associated edema, no hemorrhage or midline shift. 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 Critical Care: I have personally spent 37 minutes of critical care time in direct management of this patient. This includes bedside care, interpretation of diagnostic studies, and testing, discussion with consultants, patient, and family members, and other require inpatient management activities. This 37 minutes is in excess of all separately billable procedures. 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 Depression Embolus of [place] GERD (gastroesophageal reflux disease) Goals of care, counseling/discussion Gout HX HTN (hypertension) Hyperlipidemia Hyperlipidemia Hypertension Kidney stone on left side Kidney stones HX Left nephrolithiasis Osteoarthritis Pain after cerebrovascular accident (CVA) Urge urinary incontinence Vitamin D deficiency Surgical History H/O oophorectomy History of appendectomy History of bilateral tubal ligation History of bowel resection History of cataract surgery LEFT History of cholecystectomy History of colonoscopy NOT SUCCESSUL History of colostomy AND REVERSAL History of dilatation and curettage History of gastric bypass History of surgery ALL TEETH REMOVED APR 03 2020 History of tonsillectomy History of tooth extraction History of total knee replacement LEFT S/P panniculectomy HX Family History Sister Family history of diabetes mellitus Mother Family history of diabetes mellitus Social History Smoking Status: Unknown if ever smoked packs per day: 0.5; Cigarettes Per Day: 0.5PPD / ADVISED NPO " TODAY IS THE LAST DAY I'M SMOKING"; Second Hand Exposure: No; Hx Alcohol Use: No Hx Substance Use: No Preferred Language: Syriac Communication Ability: Effective Fruit Dumper Required: No Beliefs That Will Affect Care: None Current Living Situation: Alone Feels Safe at Home: Yes Assistive Devices: Cane and Glasses Allergies Allergies Allergy/AdvReac Type Severity Reaction Status Date / Time cephalexin AdvReac Unknown YEAST Verified 11/20/20 10:49 INFECT Influenza Virus Vaccines AdvReac Unknown GOT THE Verified 11/20/20 10:49 FLU YRS AGO Home Meds Home Medications Medication Instructions Recorded Confirmed atorvastatin 40 mg tablet 40 mg PO QAM 01/03/18 11/20/20 hydrochlorothiazide 12.5 mg capsule 12.5 mg PO QAM 01/03/18 11/20/20 lisinopril 40 mg tablet 40 mg PO QAM 01/03/18 11/20/20 paroxetine HCl 40 mg tablet (Paxil) 40 mg PO QAM 01/03/18 11/20/20 oxybutynin chloride 10 mg 10 mg PO QAM 06/12/19 11/20/20 tablet,extended release 24 hr mirtazapine 15 mg tablet (Remeron) 15 mg PO HS 03/05/20 11/20/20 ondansetron HCl 4 mg tablet 4 mg PO Q6 PRN Nausea 03/05/20 11/20/20 triamcinolone acetonide 0.1 % 1 applic topical BID PRN SKIN 03/05/20 11/20/20 topical cream CRACKING ON FINGER Previous Rx's Medication Instructions Recorded ergocalciferol (vitamin D2) 1,250 50,000 unit PO WEEKLY #12 caps 08/17/20 mcg (50,000 unit) capsule ciprofloxacin HCl 500 mg tablet 500 mg PO BID 5 days #10 tabs 10/22/20 doxycycline hyclate 100 mg capsule 100 mg PO BID #28 caps 11/20/20 oxycodone-acetaminophen 5 mg-325 1 tab PO Q8H PRN pain #10 tabs 11/20/20 mg tablet (Percocet) tamsulosin 0.4 mg capsule 0.4 mg PO HS #30 caps 11/20/20 Results & Data (ED) Vital Signs Vital Signs - 24 hr 11/08/21 08:57 11/08/21 08:57 11/08/21 08:57 Temperature 36.8 C Temperature Source Oral Pulse Rate 89 Pulse Rate [Apical] 84 Pulse Rate from SpO2 Sensor Respiratory Rate 22 22 Respiratory Effort / Characteristics Spontaneous Non-Labored Spontaneous Respiratory Depth Normal Normal Respiratory Pattern Regular Regular Blood Pressure 185/96 H Blood Pressure [Right Arm] 183/73 H Blood Pressure Mean 125 Blood Pressure Mean [Right Arm] 109 Pulse Oximetry 100 100 100 Oxygen Delivery Method Nasal Cannula Nasal Cannula Nasal Cannula Oxygen Flow Rate 3 3 3 Sepsis Recent Fever Within 48 Hours No Sepsis New/Unexplained Change in Mental Status No Sepsis Action Taken by Nursing No Action Required 11/08/21 09:08 11/08/21 09:10 11/08/21 09:10 Temperature Temperature Source Pulse Rate 92 H 93 H Pulse Rate [Apical] Pulse Rate from SpO2 Sensor 91 H 89 Respiratory Rate 22 Respiratory Effort / Characteristics Respiratory Depth Respiratory Pattern Blood Pressure 175/120 H Blood Pressure [Right Arm] Blood Pressure Mean 138 Blood Pressure Mean [Right Arm] Pulse Oximetry 100 100 Oxygen Delivery Method Oxygen Flow Rate Sepsis Recent Fever Within 48 Hours Sepsis New/Unexplained Change in Mental Status Sepsis Action Taken by Nursing 11/08/21 09:13 11/08/21 09:13 11/08/21 09:30 Temperature Temperature Source Pulse Rate 87 84 Pulse Rate [Apical] Pulse Rate from SpO2 Sensor 90 85 Respiratory Rate 21 20 Respiratory Effort / Characteristics Respiratory Depth Respiratory Pattern Blood Pressure 185/96 H Blood Pressure [Right Arm] Blood Pressure Mean 125 Blood Pressure Mean [Right Arm] Pulse Oximetry 100 100 Oxygen Delivery Method Oxygen Flow Rate Sepsis Recent Fever Within 48 Hours Sepsis New/Unexplained Change in Mental Status Sepsis Action Taken by Nursing 11/08/21 09:31 11/08/21 09:31 11/08/21 10:00 Temperature Temperature Source Pulse Rate 73 58 L Pulse Rate [Apical] Pulse Rate from SpO2 Sensor 75 58 L Respiratory Rate 20 19 Respiratory Effort / Characteristics Respiratory Depth Respiratory Pattern Blood Pressure 168/79 H Blood Pressure [Right Arm] Blood Pressure Mean 108 Blood Pressure Mean [Right Arm] Pulse Oximetry 100 100 Oxygen Delivery Method Oxygen Flow Rate Sepsis Recent Fever Within 48 Hours Sepsis New/Unexplained Change in Mental Status Sepsis Action Taken by Nursing 11/08/21 10:23 11/08/21 10:23 Temperature Temperature Source Pulse Rate 59 L Pulse Rate [Apical] Pulse Rate from SpO2 Sensor 58 L Respiratory Rate 20 Respiratory Effort / Characteristics Respiratory Depth Respiratory Pattern Blood Pressure 158/72 H Blood Pressure [Right Arm] Blood Pressure Mean 100 Blood Pressure Mean [Right Arm] Pulse Oximetry 100 Oxygen Delivery Method Oxygen Flow Rate Sepsis Recent Fever Within 48 Hours Sepsis New/Unexplained Change in Mental Status Sepsis Action Taken by Long-Term Medications Current Medication List: was personally reviewed by me Laboratory Data Attestation: I reviewed the patient's lab results. Result diagrams: 11/08/21 09:11 11/08/21 09:11 Lab Results 11/08/21 11/08/21 11/08/21 Range/Units 09:10 09:11 09:11 WBC 11.79 H (4.8-10.8) K/ul RBC 4.62 (3.93-5.22) M/uL Hgb 14.0 (12.0-16.0) g/dl Hct 41.7 (34.1-44.9) % MCV 90.3 (80.0-100.0) fL MCH 30.3 (25.0-34.0) pg MCHC 33.6 (32.0-36.0) g/dL RDW Std Deviation 47.8 H (36.4-46.3) fL RDW Coeff of Sheryl 14.5 (11.5-14.5) % Plt Count 269 (130-400) K/uL MPV 9.2 L (9.4-12.3) fL Immature Gran % (Auto) 0.5 % Neut % (Auto) 93.9 % Lymph % (Auto) 3.1 % Ferry % (Auto) 2.4 % Eos % (Auto) 0.0 % Baso % (Auto) 0.1 % Neut # (Auto) 11.08 H (1.4-6.5) K/uL Lymph # (Auto) 0.36 L (1.2-3.4) K/uL Ferry # (Auto) 0.28 (0.24-0.82) K/uL Eos # (Auto) 0.00 (0-0.50) K/uL Baso # (Auto) 0.01 (0-0.2) K/uL Immature Gran # (Auto) 0.06 H (0.00-0.02) K/uL Echinocytes 2+ Acanthocytes (Spur) 1+ PT (9.0-12.0) Seconds INR (0.9-1.1) APTT (21.0-31.0) Seconds PTT Ratio Sodium (136-145) mmol/L Potassium (3.5-5.1) mmol/L Chloride (98-107) mmol/L Carbon Dioxide (21-32) mmol/L Anion Gap (3-11) BUN (6-23) mg/dl Creatinine (0.6-1.2) mg/dl Est Cr Clr Drug Dosing Est GFR ( Amer) ml/min Est GFR (Non-Af Amer) ml/min BUN/Creatinine Ratio (10-20) Glucose (70-99(Fasting)) mg/dl POC Glucose 188 H (70-99) mg/dl Calcium (8.5-10.1) mg/dl Magnesium (1.7-2.4) mg/dl Total Bilirubin (0.2-1.0) mg/dl AST (13-39) U/L ALT (7-52) U/L Alkaline Phosphatase (34-104) U/L Troponin I High Sens (0-14) pg/ml Total Protein (6.0-8.3) gm/dl Albumin (3.4-5.0) gm/dl Globulin (2.5-4.0) gm/dl Albumin/Globulin Ratio (0.9-2) SARS-CoV-2, RNA, NAAT (NEGATIVE) Blood Type O Positive Antibody Screen NEGATIVE 11/08/21 11/08/21 11/08/21 Range/Units 09:11 09:11 09:22 WBC (4.8-10.8) K/ul RBC (3.93-5.22) M/uL Hgb (12.0-16.0) g/dl Hct (34.1-44.9) % MCV (80.0-100.0) fL MCH (25.0-34.0) pg MCHC (32.0-36.0) g/dL RDW Std Deviation (36.4-46.3) fL RDW Coeff of Sheryl (11.5-14.5) % Plt Count (130-400) K/uL MPV (9.4-12.3) fL Immature Gran % (Auto) % Neut % (Auto) % Lymph % (Auto) % Ferry % (Auto) % Eos % (Auto) % Baso % (Auto) % Neut # (Auto) (1.4-6.5) K/uL Lymph # (Auto) (1.2-3.4) K/uL Ferry # (Auto) (0.24-0.82) K/uL Eos # (Auto) (0-0.50) K/uL Baso # (Auto) (0-0.2) K/uL Immature Gran # (Auto) (0.00-0.02) K/uL Echinocytes Acanthocytes (Spur) PT 12.7 H (9.0-12.0) Seconds INR 1.2 H (0.9-1.1) APTT 26.5 (21.0-31.0) Seconds PTT Ratio 1.0 Sodium 131 L (136-145) mmol/L Potassium 4.1 (3.5-5.1) mmol/L Chloride 98 (98-107) mmol/L Carbon Dioxide 26 (21-32) mmol/L Anion Gap 7 (3-11) BUN 10 (6-23) mg/dl Creatinine 0.62 (0.6-1.2) mg/dl Est Cr Clr Drug Dosing Not Reportable Est GFR ( Amer) 98.7 ml/min Est GFR (Non-Af Amer) 85.2 ml/min BUN/Creatinine Ratio 16.1 (10-20) Glucose 166 H (70-99(Fasting)) mg/dl POC Glucose (70-99) mg/dl Calcium 9.0 (8.5-10.1) mg/dl Magnesium 1.8 (1.7-2.4) mg/dl Total Bilirubin 0.6 (0.2-1.0) mg/dl AST 18 (13-39) U/L ALT 12 (7-52) U/L Alkaline Phosphatase 86 (34-104) U/L Troponin I High Sens 20.7 H (0-14) pg/ml Total Protein 6.0 (6.0-8.3) gm/dl Albumin 3.5 (3.4-5.0) gm/dl Globulin 2.5 (2.5-4.0) gm/dl Albumin/Globulin Ratio 1.4 (0.9-2) SARS-CoV-2, RNA, NAAT NEGATIVE (NEGATIVE) Blood Type Antibody Screen Administered Medications Morphine Sulfate (Morphine Sulfate 5 Mg/0.25 Ml Udp) 5 mg PO Q3H PRN PRN Reason: Pain or Respiratory Distress Stop: 11/22/21 10:23 Last Admin: 11/08/21 16:09 Dose: 5 mg Documented By: BENTON Discontinued Medications Ioversol (Optiray 300 500ml) 120 ml IV ONCE ONE Stop: 11/08/21 09:10 Last Admin: 11/08/21 09:09 Dose: 120 ml Documented By: ABIDA Imaging Data Radiologist's Impression: Head CT 11/08/21 08:[address] OF THE BRAIN; CT ANGIOGRAM OF THE BRAIN; CT ANGIOGRAM OF THE NECK CLINICAL HISTORY: Strokelike symptoms. Right-sided weakness. COMPARISON STUDY: No priors. TECHNIQUE: Unenhanced axial CT scan of the brain is performed. Subsequently, following the IV administration of 120 of Optiray 300, CT angiogram of the head and neck was performed from the aortic arch to the vertex. Images are reviewed in the axial, sagittal, and coronal planes. 3-D MIPS images are created and assessed. IV contrast was administered without complication. All measurements were calculated based on NASCET criteria. A dose lowering technique was utilized adhering to the principles of ALARA. CT DOSE: 1190.58 mGy.cm FINDINGS: Brain parenchyma: There is extensive loss of marie-white matter differentiation throughout the left MCA territory consistent with a large infarct. Hyperdense thrombus is seen within the left middle cerebral artery on axial image #15. Subacute infarct also involves the left caudate head and basal ganglia. There is effacement of the overlying cortical sulci. No left right midline shift is seen. There is no hemorrhage. There is no evidence of enhancing mass lesion on the angiogram phase images. The ventricles, sulci, and cisterns are prominent secondary to involutional change. No extra-axial fluid collection is seen. Thoracic aorta: There is atherosclerotic calcification of the thoracic aorta. Visualized portions of the thoracic aorta are normal in caliber. The aortic arch demonstrates standard 3-vessel anatomy. Right carotid arterial system: The right common carotid artery is widely patent, as is the right internal carotid artery. There is a dense sclerotic plaque in t he carotid bulb. This causes mild stenosis aorta and the right external carotid artery. Left carotid arterial system: The left common carotid artery is widely patent. 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 This is occluded from the bifurcation to the skull base. The left external carotid artery is patent. Vertebral arteries: The vertebral arteries are widely patent bilaterally and codominant. Subclavian arteries: Widely patent bilaterally. Intracranial vasculature: There is atherosclerotic calcification of the cavernous carotid and vertebral arteries. The right common carotid artery is widely patent at the skull base. The right middle cerebral artery is widely patent, as are the anterior cerebral arteries. The left anterior cerebral artery is supplied via the anterior communicated artery. 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 There is also complete thrombosis of the left middle cerebral artery. There is a left posterior to indicating artery. The vertebrobasilar system and posterior cerebral arteries are widely patent. The vertebral arteries are codominant. No aneurysm is seen. Jugular veins: Patent bilaterally. Dural sinuses: Patent. Lung apices: Secretions are seen throughout the trachea. Emphysematous change is noted. There is an accessory azygos fissure. Upper lobe lung parenchyma is otherwise clear as imaged. Soft tissues: An airway devices in place. The visualized pharyngeal soft tissues are normal in appearance noting angiographic phase technique. The oropharyngeal airway appears widely patent. The thyroid gland is heterogeneous. The salivary glands are normal in appearance. No cervical lymphadenopathy is seen. Skeletal structures: The skeletal structures are osteopenic. The calvarium appears intact. The cervical spine is maintains noting multilevel spondylosis. No lytic or blastic lesion is seen. Orbits: The bony orbits are intact. Orbital contents are normal as visualized noting bilateral ocular lens implants. Sinuses and mastoids: There is mild mucosal thickening within the maxillary, sphenoid, and ethmoid sinuses. The mastoid air cells are well pneumatized. IMPRESSION: 1. Large subacute left MCA territory infarct with associated edema. 2. There is no hemorrhage or midline shift. 3. 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 4. 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 5. The right carotid arterial system and the vertebral arteries are patent. 6. The right middle cerebral artery, the posterior cerebral arteries, and the anterior cerebral arteries are patent. 7. Emphysema. ACT 112: Negative or not required by law. Electronically signed by: Rasta Borja M.D. 11/08/2021 9:28 AM Head CTA 11/08/21 08:[address] OF THE BRAIN; CT ANGIOGRAM OF THE BRAIN; CT ANGIOGRAM OF THE NECK CLINICAL HISTORY: Strokelike symptoms. Right-sided weakness. COMPARISON STUDY: No priors. TECHNIQUE: Unenhanced axial CT scan of the brain is performed. Subsequently, following the IV administration of 120 of Optiray 300, CT angiogram of the head and neck was performed from the aortic arch to the vertex. Images are reviewed in the axial, sagittal, and coronal planes. 3-D MIPS images are created and assessed. IV contrast was administered without complication. All measurements were calculated based on NASCET criteria. A dose lowering technique was utilized adhering to the principles of ALARA. CT DOSE: 1190.58 mGy.cm FINDINGS: Brain parenchyma: There is extensive loss of marie-white matter differentiation throughout the left MCA territory consistent with a large infarct. Hyperdense thrombus is seen within the left middle cerebral artery on axial image #15. Subacute infarct also involves the left caudate head and basal ganglia. There is effacement of the overlying cortical sulci. No left right midline shift is seen. There is no hemorrhage. There is no evidence of enhancing mass lesion on the angiogram phase images. The ventricles, sulci, and cisterns are prominent secondary to involutional change. No extra-axial fluid collection is seen. Thoracic aorta: There is atherosclerotic calcification of the thoracic aorta. Visualized portions of the thoracic aorta are normal in caliber. The aortic arch demonstrates standard 3-vessel anatomy. Right carotid arterial system: The right common carotid artery is widely patent, as is the right internal carotid artery. There is a dense sclerotic plaque in the carotid bulb. This causes mild stenosis aorta and the right external carotid artery. Left carotid arterial system: The left common carotid artery is widely patent. 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 This is occluded from the bifurcation to the skull base. The left external carotid artery is patent. Vertebral arteries: The vertebral arteries are widely patent bilaterally and codominant. Subclavian arteries: Widely patent bilaterally. Intracranial vasculature: There is atherosclerotic calcification of the cavernous carotid and vertebral arteries. The right common carotid artery is widely patent at the skull base. The right middle cerebral artery is widely patent, as are the anterior cerebral arteries. The left anterior cerebral artery is supplied via the anterior communicated artery. 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 There is also complete thrombosis of the left middle cerebral artery. There is a left posterior to indicating artery. The vertebrobasilar system and posterior cerebral arteries are widely patent. The vertebral arteries are codominant. No aneurysm is seen. Jugular veins: Patent bilaterally. Dural sinuses: Patent. Lung apices: Secretions are seen throughout the trachea. Emphysematous change is noted. There is an accessory azygos fissure. Upper lobe lung parenchyma is otherwise clear as imaged. Soft tissues: An airway devices in place. The visualized pharyngeal soft tissues are normal in appearance noting angiographic phase technique. The oropharyngeal airway appears widely patent. The thyroid gland is heterogeneous. The salivary glands are normal in appearance. No cervical lymphadenopathy is seen. Skeletal structures: The skeletal structures are osteopenic. The calvarium appears intact. The cervical spine is maintains noting multilevel spondylosis. No lytic or blastic lesion is seen. Orbits: The bony orbits are intact. Orbital contents are normal as visualized noting bilateral ocular lens implants. Sinuses and mastoids: There is mild mucosal thickening within the maxillary, sphenoid, and ethmoid sinuses. The mastoid air cells are well pneumatized. IMPRESSION: 1. Large subacute left MCA territory infarct with associated edema. 2. There is no hemorrhage or midline shift. 3. 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 4. 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 5. The right carotid arterial system and the vertebral arteries are patent. 6. The right middle cerebral artery, the posterior cerebral arteries, and the anterior cerebral arteries are patent. 7. Emphysema. ACT 112: Negative or not required by law. Electronically signed by: Rasta Borja M.D. 11/08/2021 9:28 AM Neck CTA 11/08/21 08:[address] OF THE BRAIN; CT ANGIOGRAM OF THE BRAIN; CT ANGIOGRAM OF THE NECK CLINICAL HISTORY: Strokelike symptoms. Right-sided weakness. COMPARISON STUDY: No priors. TECHNIQUE: Unenhanced axial CT scan of the brain is performed. Subsequently, following the IV administration of 120 of Optiray 300, CT angiogram of the head and neck was performed from the aortic arch to the vertex. Images are reviewed in the axial, sagittal, and coronal planes. 3-D MIPS images are created and assessed. IV contrast was administered without complication. All measurements were calculated based on NASCET criteria. A dose lowering technique was utilized adhering to the principles of ALARA. CT DOSE: 1190.58 mGy.cm FINDINGS: Brain parenchyma: There is extensive loss of marie-white matter differentiation throughout the left MCA territory consistent with a large infarct. Hyperdense thrombus is seen within the left middle cerebral artery on axial image #15. Subacute infarct also involves the left caudate head and basal ganglia. There is effacement of the overlying cortical sulci. No left right midline shift is seen. There is no hemorrhage. There is no evidence of enhancing mass lesion on the angiogram phase images. The ventricles, sulci, and cisterns are prominent secondary to involutional change. No extra-axial fluid collection is seen. Thoracic aorta: There is atherosclerotic calcification of the thoracic aorta. Visualized portions of the thoracic aorta are normal in caliber. The aortic arch demonstrates standard 3-vessel anatomy. Right carotid arterial system: The right common carotid artery is widely patent, as is the right internal carotid artery. There is a dense sclerotic plaque in the carotid bulb. This causes mild stenosis aorta and the right external carotid artery. Left carotid arterial system: The left common carotid artery is widely patent. There is advanced atherosclerotic calcification of the carotid bulb, with com plete thrombosis of the left internal carotid artery. This is occluded from the bifurcation to the skull base. The left external carotid artery is patent. Vertebral arteries: The vertebral arteries are widely patent bilaterally and codominant. Subclavian arteries: Widely patent bilaterally. Intracranial vasculature: There is atherosclerotic calcification of the cavernous carotid and vertebral arteries. The right common carotid artery is widely patent at the skull base. The right middle cerebral artery is widely patent, as are the anterior cerebral arteries. The left anterior cerebral artery is supplied via the anterior communicated artery. 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 There is also complete thrombosis of the left middle cerebral artery. There is a left posterior to indicating artery. The vertebrobasilar system and posterior cerebral arteries are widely patent. The vertebral arteries are codominant. No aneurysm is seen. Jugular veins: Patent bilaterally. Dural sinuses: Patent. Lung apices: Secretions are seen throughout the trachea. Emphysematous change is noted. There is an accessory azygos fissure. Upper lobe lung parenchyma is oth erwise clear as imaged. Soft tissues: An airway devices in place. The visualized pharyngeal soft tissues are normal in appearance noting angiographic phase technique. The oropharyngeal airway appears widely patent. The thyroid gland is heterogeneous. The salivary glands are normal in appearance. No cervical lymphadenopathy is seen. Skeletal structures: The skeletal structures are osteopenic. The calvarium appears intact. The cervical spine is maintains noting multilevel spondylosis. No lytic or blastic lesion is seen. Orbits: The bony orbits are intact. Orbital contents are normal as visualized noting bilateral ocular lens implants. Sinuses and mastoids: There is mild mucosal thickening within the maxillary, sphenoid, and ethmoid sinuses. The mastoid air cells are well pneumatized. IMPRESSION: 1. Large subacute left MCA territory infarct with associated edema. 2. There is no hemorrhage or midline shift. 3. 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 4. 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 5. The right carotid arterial system and the vertebral arteries are patent. 6. The right middle cerebral artery, the posterior cerebral arteries, and the anterior cerebral arteries are patent. 7. Emphysema. ACT 112: Negative or not required by law. Electronically signed by: Rasta Borja M.D. 11/08/2021 9:28 AM Discharge Plan Visit Data Chief Complaint: Stroke Alert ED Provider: Jp Albarado Discharge Problem: Acute stroke due to embolism of left middle cerebral artery Patient Disposition: Admitted As Inpatient Discharge Instructions Interventions: ED Discharge Assessment Last Done: 11/08/21 11:52
[2021-11-08] MEDS ORDERED: OPTIRAY 300 500mL IV ONE (09:09)
[2021-11-08 09:27] LABS: Hematocrit (blood only) 41.7 % (34.1-44.9); Mean Corpuscular Hemoglobin 30.3 pg (25.0-34.0); Mean Corpuscular Hgb Conc 33.6 g/dL (32.0-36.0); Mean Corpuscular Volume 90.3 fL (80.0-100.0); Mean Platelet Volume 9.2 fL (9.4-12.3); Platelet Count 269 K/uL (130-400); RDW Coefficient of Variation 14.5 % (11.5-14.5); RDW Standard Deviation 47.8 fL (36.4-46.3); Red Blood Count 4.62 M/uL (3.93-5.22); White Blood Count 11.79 K/ul (4.8-10.8)
--- NOTE | 2021-11-08 09:30 | CT Scan Report ---
UNENHANCED CT OF THE BRAIN; CT ANGIOGRAM OF THE BRAIN; CT ANGIOGRAM OF THE NECK CLINICAL HISTORY: Strokelike symptoms. Right-sided weakness. COMPARISON STUDY: No priors. TECHNIQUE: Unenhanced axial CT scan of the brain is performed. Subsequently, following the IV adminis tration of 120 of [address] 300, CT angiogram of the head and neck was performed from the aortic arch t o the vertex. Images are reviewed in the axial, sagittal, and coronal planes. 3-D MIPS images are cre ated and assessed. IV contrast was administered without complication. All measurements were calculate d based on NASCET criteria. A dose lowering technique was utilized adhering to the principles of ALA RA. CT DOSE: 1190.58 mGy.cm FINDINGS: Brain parenchyma: There is extensive loss of marie-white matter differentiation throughout the left MC A territory consistent with a large infarct. Hyperdense thrombus is seen within the left middle cereb ral artery on axial image #15. Subacute infarct also involves the left caudate head and basal ganglia . There is effacement of the overlying cortical sulci. No left right midline shift is seen. There is no hemorrhage. There is no evidence of enhancing mass lesion on the angiogram phase images. The ventr icles, sulci, and cisterns are prominent secondary to involutional change. No extra-axial fluid colle ction is seen. Thoracic aorta: There is atherosclerotic calcification of the thoracic aorta. Visualized portions of the thoracic aorta are normal in caliber. The aortic arch demonstrates standard 3-vessel anatomy. Right carotid arterial system: The right common carotid artery is widely patent, as is the right inte rnal carotid artery. There is a dense sclerotic plaque in the carotid bulb. This causes mild stenosis aorta and the right external carotid artery. Left carotid arterial system: The left common carotid artery is widely patent. 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 This is occluded from the bifurcation to the skull base. The left external carotid artery is patent. Vertebral arteries: The vertebral arteries are widely patent bilaterally and codominant. Subclavian arteries: Widely patent bilaterally. Intracranial vasculature: There is atherosclerotic calcification of the cavernous carotid and vertebr al arteries. The right common carotid artery is widely patent at the skull base. The right middle cer ebral artery is widely patent, as are the anterior cerebral arteries. The left anterior cerebral bulmaro ry is supplied via the anterior communicated artery. 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 There is also complete thr ombosis of the left middle cerebral artery. There is a left posterior to indicating artery. The verte brobasilar system and posterior cerebral arteries are widely patent. The vertebral arteries are codom inant. No aneurysm is seen. Jugular veins: Patent bilaterally. Dural sinuses: Patent. Lung apices: Secretions are seen throughout the trachea. Emphysematous change is noted. There is an a ccessory azygos fissure. Upper lobe lung parenchyma is otherwise clear as imaged. Soft tissues: An airway devices in place. The visualized pharyngeal soft tissues are normal in appear ance noting angiographic phase technique. The oropharyngeal airway appears widely patent. The thyroid gland is heterogeneous. The salivary glands are normal in appearance. No cervical lymphadenopathy is seen. Skeletal structures: The skeletal structures are osteopenic. The calvarium appears intact. The cervic al spine is maintains noting multilevel spondylosis. No lytic or blastic lesion is seen. Orbits: The bony orbits are intact. Orbital contents are normal as visualized noting bilateral ocular lens implants. Sinuses and mastoids: There is mild mucosal thickening within the maxillary, sphenoid, and ethmoid si nuses. The mastoid air cells are well pneumatized. IMPRESSION: 1. Large subacute left MCA territory infarct with associated edema. 2. There is no hemorrhage or midline shift. 3. 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 4. 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 5. The right carotid arterial system and the vertebral arteries are patent. 6. The right middle cerebral artery, the posterior cerebral arteries, and the anterior cerebral arter ies are patent. 7. Emphysema. ACT 112: Negative or not required by law. Electronically signed by: Rasta Borja M.D. 11/08/2021 9:28 AM
[2021-11-08 09:47] LABS: INR 1.2 (0.9-1.1); Partial Thromboplastin Time 26.5 Seconds (21.0-31.0); Prothrombin Time 12.7 Seconds (9.0-12.0)
--- NOTE | 2021-11-08 09:49 | History & Physical Report ---
Date of Service November 08, 2021 Assessment & Plan (1) Acute ischemic left MCA stroke: Plan: Likely embolic stroke due to A fib. Pt presented as CVA Alert. Head CT and Head/Neck CTA done with following results: 1. Large subacute left MCA territory infarct with associated edema but no Midline Shift 2. 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 3. 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 Tele Neuro consult with [facility] Dr. Santo; due to the large area of infarct and numerous deficits, no TNF nor embolectomy recommended as patient is unlikely to have a meaningful recovery. Transition to [facility] as discussed with patients family an no further diagnostic imaging to occur, including MRI. (2) Pain after cerebrovascular accident (CVA): Plan: Currently patient is lying flat in her hospital bed with a furrowed brow. She has a right sided gaze and is not responsive to verbal or tactile stimulation. No current signs of behavioral disturbance, seizure or agitation. Will have Roxanol available Q3 PRN. If patient is exhibiting continued furrowed brow despite PRN Morphine administration or if Morphine is being administered Q1-2 hours; would consider a Morphine gtt if needed. (3) Goals of care, counseling/discussion: Plan: Lengthy conversation held with the patients daughter, Karlene at the bedside. Karlene is the next of kin and she does not have any siblings. Patients daughter works in a dialysis unit and understands the extent of her mothers ailment. She is the only sibling and the sole decision maker. There are two nephews that are largely typically involved with their great aunt and they both just recently los t their own mother. Due to the extent of Sendy's CVA and the unlikelihood of her having a meaningful recovery; the goal is to transition fully to Comfort Measures Only. We will discontinue all blood draws, medications not focused on comfort and confirmed no artificial nutrition or hydration with feeding tubes or TPN. No MRI, tele or echocardiogram. Will start Roxanol PO PRN; if patient exhibits signs of further discomfort; would move towards Morphine gtt as necessary. We did discuss the patient returning home on hospice; however, due to the daughter working two jobs and lack of other resources and family availability; not an option at this time. Did discuss that if she would continue to live for numerous days that there may be further conversation regarding SNF placement with Hospice for which she understands. For now, [facility] order set placed and patient is DNR/DNI in the event of cardiac or respiratory arrest. I returned to the patients room twice during the admitting process to discuss further with family. Set expectation that patient may have some neuro recovery where she MAY be able to interact and not to second guess comfort transition as it likely will not change the roasterman deficits and unlikely meaningful chcf recovery. I personally was able to review all current laboratory work and diagnostic images obtained in the ED. Additionally, I was able to review the patients past medication reconciliation and history with direct visualization in the patients chart. Dr. Hebert present for patient encounter. Plan Disposition: PCP: Dr. Barber Code: DNR/DNI Point of Contact: Karlene, daughter: [phone] VTE Prophylaxis: [facility] History of Present Illness Chief Complaint: stroke like symptoms Primary Care Provider: Debo Barber MD Ms. Sendy Green is an 81 year old that presented from home via EMS with signs of a stroke. All of the patients history was obtained from the daughter Karlene as the patient is obtunded. Karlene was with her on Monday and she left her to go to watch the [employer] game and there were no signs of anything remarkable. This morning she went to see her and she was slumped over in her chair with her eyes fixed gaze towards the ceiling and she was not able to communicate or respond to her daughter, so she called 911. There were no reported/witnessed falls or trauma. 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 A stroke alert was called into [facility] and the case was discussed by the ED physician with Dr. Santo who recommended that due to the large area of infarct and numerous deficits, no TNF nor embolectomy recommended as patient is unlikely to have a meaningful recovery. Lengthy conversation held with patients daughter, Karlene, as outline in the A/P and the decision was made to transition to [facility] as discussed with patients family an no further diagnostic imaging to occur, including MRI. The patient was lying in her bed, unable to complete a ROS due to being obtunded and not responsive to verbal or tactile stimulation. She had furrowed brow and was flacid on her right side, but no movement generally. Please see A/P for further details. 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 Depression Embolus of [place] GERD (gastroesophageal reflux disease) Goals of care, counseling/discussion Gout HX HTN (hypertension) Hyperlipidemia Hyperlipidemia Hypertension Kidney stone on left side Kidney stones HX Left nephrolithiasis Osteoarthritis Pain after cerebrovascular accident (CVA) Urge urinary incontinence Vitamin D deficiency Surgical History H/O oophorectomy History of appendectomy History of bilateral tubal ligation History of bowel resection History of cataract surgery LEFT History of cholecystectomy History of colonoscopy NOT SUCCESSUL History of colostomy AND REVERSAL History of dilatation and curettage History of gastric bypass History of surgery ALL TEETH REMOVED APR 03 2020 History of tonsillectomy History of tooth extraction History of total knee replacement LEFT S/P panniculectomy HX Family History Sister Family history of diabetes mellitus Mother Family history of diabetes mellitus Social History Smoking Status: Unknown if ever smoked packs per day: 0.5; Cigarettes Per Day: 0.5PPD / ADVISED NPO " TODAY IS THE LAST DAY I'M SMOKING"; Second Hand Exposure: No; Hx Alcohol Use: No Hx Substance Use: No Preferred Language: Tamazight Communication Ability: Effective Surgical Brace Maker Required: No Beliefs That Will Affect Care: None Current Living Situation: Alone Feels Safe at Home: Yes Assistive Devices: Cane and Glasses Review of Systems Review of Systems: Unobtainable due to cognitive status Physical Exam Physical Exam: Neuro: obtunded, no response to verbal or tactile stimuli HEENT: head normocephalic, dry mucus membranes, right gaze deviation CV: S1/S2, (-) M/G/R, (-) edema, cap refill < 3 seconds Resp: Lungs CTA in all murillo. On RA GI: Abdomen S/NT/ND, + bowel sounds Musculoskeletal: right side flaccid, left side with 1/5 Extremities: No clubbing, cyanosis or edema Skin: (-) rashes , (-) erythema. Results & Data Results & Data ([facility]) Vital Signs (Past 12 Hours) Vital Signs Temp Pulse Pulse Resp BP BP Pulse Ox 11/08/21 08:57 84 22 183/73 H 100 11/08/21 08:57 100 11/08/21 08:57 36.8 C 89 22 185/96 H 100 O2 Del Method O2 Flow Rate 11/08/21 08:57 Nasal Cannula 3 11/08/21 08:57 Nasal Cannula 3 11/08/21 08:57 Nasal Cannula 3 Laboratory Results Short CBC 11/08/21 Range/Units 09:11 WBC 11.79 H (4.8-10.8) K/ul Hgb 14.0 (12.0-16.0) g/dl Hct 41.7 (34.1-44.9) % Plt Count 269 (130-400) K/uL Diagnostic Findings Head CT 11/08/21 08:[address] OF THE BRAIN; CT ANGIOGRAM OF THE BRAIN; CT ANGIOGRAM OF THE NECK CLINICAL HISTORY: Strokelike symptoms. Right-sided weakness. COMPARISON STUDY: No priors. TECHNIQUE: Unenhanced axial CT scan of the brain is performed. Subsequently, following the IV administration of 120 of Optiray 300, CT angiogram of the head and neck was performed from the aortic arch to the vertex. Images are reviewed in the axial, sagittal, and coronal planes. 3-D MIPS images are created and assessed. IV contrast was administered without complication. All measurements were calculated based on NASCET criteria. A dose lowering technique was utilized adhering to the principles of ALARA. CT DOSE: 1190.58 mGy.cm FINDINGS: Brain parenchyma: There is extensive loss of marie-white matter differentiation throughout the left MCA territory consistent with a large infarct. Hyperdense thrombus is seen within the left middle cerebral artery on axial image #15. Subacute infarct also involves the left caudate head and basal ganglia. There is effacement of the overlying cortical sulci. No left right midline shift is seen. There is no hemorrhage. There is no evidence of enhancing mass lesion on the angiogram phase images. The ventricles, sulci, and cisterns are prominent secondary to involutional change. No extra-axial fluid collection is seen. Thoracic aorta: There is atherosclerotic calcification of the thoracic aorta. Visualized portions of the thoracic aorta are normal in caliber. The aortic arch demonstrates standard 3-vessel anatomy. Right carotid arterial system: The right common carotid artery is widely patent, as is the right internal carotid artery. There is a dense sclerotic plaque in the carotid bulb. This causes mild stenosis aorta and the right external carotid artery. Left carotid arterial system: The left common carotid artery is widely patent. 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 This is occluded from the bifurcation to the skull base. The left external carotid artery is patent. Vertebral arteries: The vertebral arteries are widely patent bilaterally and codominant. Subclavian arteries: Widely patent bilaterally. Intracranial vasculature: There is atherosclerotic calcification of the cavernous carotid and vertebral arteries. The right common carotid artery is widely patent at the skull base. The right middle cerebral artery is widely patent, as are the anterior cerebral arteries. The left anterior cerebral artery is supplied via the anterior communicated artery. There is complete thrombosis of the intracranial left internal carotid artery from the skull base to the c [place]. There is also complete thrombosis of the left middle cerebral artery. There is a left posterior to indicating artery. The vertebrobasilar system and posterior cerebral arteries are widely patent. The vertebral arteries are codominant. No aneurysm is seen. Jugular veins: Patent bilaterally. Dural sinuses: Patent. Lung apices: Secretions are seen throughout the trachea. Emphysematous change is noted. There is an accessory azygos fissure. Upper lobe lung parenchyma is otherwise clear as imaged. Soft tissues: An airway devices in place. The visualized pharyngeal soft tissues are normal in appearance noting angiographic phase technique. The oropharyngeal airway appears widely patent. The thyroid gland is heterogeneous. The salivary glands are normal in appearance. No cervical lymphadenopathy is seen. Skeletal structures: The skeletal structures are osteopenic. The calvarium appears intact. The cervical spine is maintains noting multilevel spondylosis. No lytic or blastic lesion is seen. Orbits: The bony orbits are intact. Orbital contents are normal as visualized noting bilateral ocular lens implants. Sinuses and mastoids: There is mild mucosal thickening within the maxillary, sphenoid, and ethmoid sinuses. The mastoid air cells are well pneumatized. IMPRESSION: 1. Large subacute left MCA territory infarct with associated edema. 2. There is no hemorrhage or midline shift. 3. 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 4. 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 5. The right carotid arterial system and the vertebral arteries are patent. 6. The right middle cerebral artery, the posterior cerebral arteries, and the anterior cerebral arteries are patent. 7. Emphysema. ACT 112: Negative or not required by law. Electronically signed by: Rasta Borja M.D. 11/08/2021 9:28 AM Head CTA 11/08/21 08:[address] OF THE BRAIN; CT ANGIOGRAM OF THE BRAIN; CT ANGIOGRAM OF THE NECK CLINICAL HISTORY: Strokelike symptoms. Right-sided weakness. COMPARISON STUDY: No priors. TECHNIQUE: Unenhanced axial CT scan of the brain is performed. Subsequently, following the IV administration of 120 of Optiray 300, CT angiogram of the head and neck was performed from the aortic arch to the vertex. Images are reviewed in the axial, sagittal, and coronal planes. 3-D MIPS images are created and assessed. IV contrast was administered without complication. All measurements were calculated based on NASCET criteria. A dose lowering technique was utilized adhering to the principles of ALARA. CT DOSE: 1190.58 mGy.cm FINDINGS: Brain parenchyma: There is extensive loss of marie-white matter differentiation throughout the left MCA territory consistent with a large infarct. Hyperdense thrombus is seen within the left middle cerebral artery on axial image #15. Subacute infarct also involves the left caudate head and basal ganglia. There is effacement of the overlying cortical sulci. No left right midline shift is seen. There is no hemorrhage. There is no evidence of enhancing mass lesion on the angiogram phase images. The ventricles, sulci, and cisterns are prominent secondary to involutional change. No extra-axial fluid collection is seen. Thoracic aorta: There is atherosclerotic calcification of the thoracic aorta. Visualized portions of the thoracic aorta are normal in caliber. The aortic arch demonstrates standard 3-vessel anatomy. Right carotid arterial system: The right common carotid artery is widely patent, as is the right internal carotid artery. There is a dense sclerotic plaque in the carotid bulb. This causes mild stenosis aorta and the right external carotid artery. Left carotid arterial system: The left common carotid artery is widely patent. 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 This is occluded from the bifurcation to the skull base. The left external carotid artery is patent. Vertebral arteries: The vertebral arteries are widely patent bilaterally and co dominant. Subclavian arteries: Widely patent bilaterally. Intracranial vasculature: There is atherosclerotic calcification of the cavernous carotid and vertebral arteries. The right common carotid artery is widely patent at the skull base. The right middle cerebral artery is widely patent, as are the anterior cerebral arteries. The left anterior cerebral artery is supplied via the anterior communicated artery. There is complete thrombosis of the intracranial left internal carotid artery from the skull base to the [place]. There is also complete thrombosis of the left middle cerebral artery. There is a left posterior to indicating artery. The vertebrobasilar system and posterior cerebral arteries are widely patent. The vertebral arteries are codominant. No aneurysm is seen. Jugular veins: Patent bilaterally. Dural sinuses: Patent. Lung apices: Secretions are seen throughout the trachea. Emphysematous change is noted. There is an accessory azygos fissure. Upper lobe lung parenchyma is otherwise clear as imaged. Soft tissues: An airway devices in place. The visualized pharyngeal soft tissues are normal in appearance noting angiographic phase technique. The oropharyngeal airway appears widely patent. The thyroid gland is heterogeneous. The salivary glands are normal in appearance. No cervical lymphadenopathy is seen. Skeletal structures: The skeletal structures are osteopenic. The calvarium appears intact. The cervical spine is maintains noting multilevel spondylosis. No lytic or blastic lesion is seen. Orbits: The bony orbits are intact. Orbital contents are normal as visualized noting bilateral ocular lens implants. Sinuses and mastoids: There is mild mucosal thickening within the maxillary, sphenoid, and ethmoid sinuses. The mastoid air cells are well pneumatized. IMPRESSION: 1. Large subacute left MCA territory infarct with associated edema. 2. There is no hemorrhage or midline shift. 3. 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 4. 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 5. The right carotid arterial system and the vertebral arteries are patent. 6. The right middle cerebral artery, the posterior cerebral arteries, and the anterior cerebral arteries are patent. 7. Emphysema. ACT 112: Negative or not required by law. Electronically signed by: Rasta Borja M.D. 11/08/2021 9:28 AM Neck CTA 11/08/21 08:[address] OF THE BRAIN; CT ANGIOGRAM OF THE BRAIN; CT ANGIOGRAM OF THE NECK CLINICAL HISTORY: Strokelike symptoms. Right-sided weakness. COMPARISON STUDY: No priors. TECHNIQUE: Unenhanced axial CT scan of the brain is performed. Subsequently, following the IV administration of 120 of Optiray 300, CT angiogram of the head and neck was performed from the aortic arch to the vertex. Images are reviewed in the axial, sagittal, and coronal planes. 3-D MIPS images are created and assessed. IV contrast was administered without complication. All measurements were calculated based on NASCET criteria. A dose lowering technique was utilized adhering to the principles of ALARA. CT DOSE: 1190.58 mGy.cm FINDINGS: Brain parenchyma: There is extensive loss of marie-white matter differentiation throughout the left MCA territory consistent with a large infarct. Hyperdense thrombus is seen within the left middle cerebral artery on axial image #15. Subacute infarct also involves the left caudate head and basal ganglia. There is effacement of the overlying cortical sulci. No left right midline shift is seen. There is no hemorrhage. There is no evidence of enhancing mass lesion on the angiogram phase images. The ventricles, sulci, and cisterns are prominent secondary to involutional change. No extra-axial fluid collection is seen. Thoracic aorta: There is atherosclerotic calcification of the thoracic aorta. Visualized portions of the thoracic aorta are normal in caliber. The aortic arch demonstrates standard 3-vessel anatomy. Right carotid arterial system: The right common carotid artery is widely patent, as is the right internal carotid artery. There is a dense sclerotic plaque in the carotid bulb. This causes mild stenosis aorta and the right external carotid artery. Left carotid arterial system: The left common carotid artery is widely patent. 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 This is occluded from the bifurcation to the skull base. The left external carotid artery is patent. Vertebral arteries: The vertebral arteries are widely patent bilaterally and codominant. Subclavian arteries: Widely patent bilaterally. Intracranial vasculature: There is atherosclerotic calcification of the cavernous carotid and vertebral arteries. The right common carotid artery is widely patent at the skull base. The right middle cerebral artery is widely patent, as are the anterior cerebral arteries. The left anterior cerebral artery is supplied via the anterior communicated artery. There is complete thrombosis of the intracranial left internal carotid artery from the skull base to the [place]. There is also complete thrombosis of the left middle cerebral artery. There is a left posterior to indicating artery. The vertebrobasilar system and posterior cerebral arteries are widely patent. The vertebral arteries are codominant. No aneurysm is seen. Jugular veins: Patent bilaterally. Dural sinuses: Patent. Lung apices: Secretions are seen throughout the trachea. Emphysematous change is noted. There is an accessory azygos fissure. Upper lobe lung parenchyma is otherwise clear as imaged. Soft tissues: An airway devices in place. The visualized pharyngeal soft tissues are normal in appearance noting angiographic phase technique. The oropharyngeal airway appears widely patent. The thyroid gland is heterogeneous. The salivary glands are normal in appearance. No cervical lymphadenopathy is seen. Skeletal structures: The skeletal structures are osteopenic. The calvarium appears intact. The cervical spine is maintains noting multilevel spondylosis. No lytic or blastic lesion is seen. Orbits: The bony orbits are intact. Orbital contents are normal as visualized noting bilateral ocular lens implants. Sinuses and mastoids: There is mild mucosal thickening within the maxillary, sphenoid, and ethmoid sinuses. The mastoid air cells are well pneumatized. IMPRESSION: 1. Large subacute left MCA territory infarct with associated edema. 2. There is no hemorrhage or midline shift. 3. 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 4. 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 5. The right carotid arterial system and the vertebral arteries are patent. 6. The right middle cerebral artery, the posterior cerebral arteries, and the anterior cerebral arteries are patent. 7. Emphysema. ACT 112: Negative or not required by law. Electronically signed by: Rasta Borja M.D. 11/08/2021 9:28 AM Code Status & VTE Plan Code Status DNR/DNI in the event of cardiac or respiratory arrest Supervising Physician Co-Signing Physician Notes Patient was seen and examined with Mohini CONLEY at bedside. Chart reviewed. Case discussed with her and agree with the documentation above with regards to HPI, physical exam, A/P and edited wherever necessary. In summary, this is a 81 year old female who presents with acute ischemic stroke, left MCA territory, likely embolic due to Afib. Patient is obtunded and not following any commands. As meaningful recovery is not expected, family has decided to go for comfort measures foregoing further stroke work up or management. Rest as per the note above.
[2021-11-08 09:54] LABS: Alanine Aminotransferase 12 U/L (7-52); Albumin Globulin Ratio 1.4 (0.9-2); Albumin Level 3.5 gm/dl (3.4-5.0); Alkaline Phosphatase 86 U/L (34-104); Anion Gap 7 (3-11); Aspartate Aminotransferase 18 U/L (13-39); BUN Creatinine Ratio 16.1 (10-20); Bilirubin,Total 0.6 mg/dl (0.2-1.0); Blood Urea Nitrogen 10 mg/dl (6-23); Carbon Dioxide 26 mmol/L (21-32); Chloride 98 mmol/L (98-107); Est GFR (African American) 98.7 ml/min; Est GFR (Non-African American) 85.2 ml/min; Globulin 2.5 gm/dl (2.5-4.0); Glucose 166 mg/dl (70-99(Fasting)); Magnesium 1.8 mg/dl (1.7-2.4); Potassium 4.1 mmol/L (3.5-5.1); Sodium 131 mmol/L (136-145)
[2021-11-08 09:55] LABS: Troponin I High Sensitivity 20.7 pg/ml (0-14)
[2021-11-08 10:02] LABS: Acanthocytes 1+; Basophils # (auto) 0.01 K/uL (0-0.2); Basophils % (auto) 0.1 %; Echinocytes 2+; Immature Granulocytes # (auto) 0.06 K/uL (0.00-0.02); Immature Granulocytes % (auto) 0.5 %; Lymphocytes # (auto) 0.36 K/uL (1.2-3.4); Lymphocytes % (auto) 3.1 %; Monocytes # (auto) 0.28 K/uL (0.24-0.82); Monocytes % (auto) 2.4 %; Neutrophils # (auto) 11.08 K/uL (1.4-6.5); Neutrophils % (auto) 93.9 %
[2021-11-08] MEDS ORDERED: LORazepam 0.5 MG in SYRINGE 0.25 ML IV PRN (10:24)
[2021-11-08] MEDS ORDERED: GLYCOPYRROLATE 0.2 MG/ML VIAL IV PRN (10:24)
[2021-11-08] MEDS ORDERED: ONDANSETRON 4 MG OD TAB SL PRN (10:24)
[2021-11-08] MEDS: MoRPHine SULFATE 5 MG/0.25 ML UDP PO PRN ×2 (16:00→16:09)
--- NOTE | 2021-11-08 17:58 | Electrocardiogram Report ---
Test Reason : Blood Pressure : / mmHG Vent. Rate : 090 BPM Atrial Rate : 102 BPM P-R Int : 000 ms QRS Dur : 078 ms QT Int : 412 ms P-R-T Axes : 000 067 255 degrees QTc Int : 504 ms Poor data quality, interpretation may be adversely affected Sinus rhythm with PACs Abnormal ECG Confirmed by John Saenz ([id number]) on 11/08/2021 5:58:08 PM Referred By: REFERRED SELF Confirmed By:Alex Saenz
[2021-11-08] MEDS ORDERED: LORazepam 0.5 MG in SYRINGE 0 ML IV PRN (19:15)
[2021-11-09] MEDS: MoRPHine SULFATE 5 MG/0.25 ML UDP PO PRN ×5 (06:42→18:18)
--- NOTE | 2021-11-09 12:14 | Hospitalist Progress Note ---
Date of Service November 09, 2021 Assessment & Plan (1) Acute ischemic left MCA stroke: Plan: Likely embolic stroke due to A fib. Pt presented as CVA Alert. Head CT and Head/Neck CTA done with following results: 1. Large subacute left MCA territory infarct with associated edema but no Midline Shift 2. 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 3. 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 Tele Neuro consult with [facility] Dr. Santo; due to the large area of infarct and numerous deficits, no TNF nor embolectomy recommended as patient is unlikely to have a meaningful recovery. Transition to CORSETIER as discussed with patients family an no further diagnostic imaging to occur, including MRI. - Comfort Care without blood draws, minimize vitals, pain control, symptom control for comfort (2) Pain after cerebrovascular accident (CVA): Plan: Currently patient is lying flat in her hospital bed with a furrowed brow. She has a right sided gaze and is not responsive to verbal or tactile stimulation. No current signs of behavioral disturbance, seizure or agitation. Will have Roxanol available Q3 PRN. If patient is exhibiting continued furrowed brow despite PRN Morphine administration or if Morphine is being administered Q1-2 hours; would consider a Morphine gtt if needed. (3) Goals of care, counseling/discussion: Plan: Lengthy conversation held with the patients daughter, Karlene at the bedside. Nathanael saleem is the next of kin and she does not have any siblings. Patients daughter works in a dialysis unit and understands the extent of her mothers ailment. She is the only sibling and the sole decision maker. There are two nephews that are largely typically involved with their great aunt and they both just recently lost their own mother. Due to the extent of Sendy's CVA and the unlikelihood of her having a meaningful recovery; the goal is to transition fully to Comfort Measures Only. We will discontinue all blood draws, medications not focused on comfort and confirmed no artificial nutrition or hydration with feeding tubes or TPN. No MRI, tele or echocardiogram. Will start Roxanol PO PRN; if patient exhibits signs of further discomfort; would move towards Morphine gtt as necessary. We did discuss the patient returning home on hospice; however, due to the daughter working two jobs and lack of other resources and family availability; not an option at this time. Did discuss that if she would continue to live for numerous days that there may be further conversation regarding SNF placement with Hospice for which she understands. For now, CORSET[facility] order set placed and patient is DNR/DNI in the event of cardiac or respiratory arrest. I returned to the patients room twice during the admitting process to discuss further with family. 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 Discussion above per admitting provider. Plan Disposition: Comfort Care PCP: Dr. Barber Code: DNR/DNI Point of Contact: Karlene, daughter: [phone] VTE Prophylaxis: CORSETIER Admission and Anticipated Discharge Date Admission Date: November 08, 2021 Subjective Patient with Large left MCA territory infarct without much mental status. Opens eyes to verbal stimuli but does not interact, does not track, does not follow commands. Patient is now comfort care as will likely not have a meaningful recovery. Review of Systems Review of Systems: Unobtainable due to reduced consciousness Physical Exam Physical Exam: General: Patient resting in bed, does not appear to be in distress or pain Neuro: opens eyes to verbal stimuli but does not track, does not interact, does not follow commands Rest of physical exam deferred as patient is comfort care Results & Data Results & Data ([facility]) Vital Signs (Past 12 Hours) Vital Signs Temp Pulse Resp BP Pulse Ox O2 Del Method 11/09/21 07:31 36.7 C 85 16 149/83 H 90 Room Air Diagnostic Findings Laboratory Results WBC 11.79 K/ul (4.8-10.8) H 11/08/21 09:11 RBC 4.62 M/uL (3.93-5.22) 11/08/21 09:11 Hgb 14.0 g/dl (12.0-16.0) 11/08/21 09:11 Hct 41.7 % (34.1-44.9) 11/08/21 09:11 MCV 90.3 fL (80.0-100.0) 11/08/21 09:11 MCH 30.3 pg (25.0-34.0) 11/08/21 09:11 MCHC 33.6 g/dL (32.0-36.0) 11/08/21 09:11 RDW Std Deviation 47.8 fL (36.4-46.3) H 11/08/21 09:11 RDW Coeff of Sheryl 14.5 % (11.5-14.5) 11/08/21 09:11 Plt Count 269 K/uL (130-400) 11/08/21 09:11 MPV 9.2 fL (9.4-12.3) L 11/08/21 09:11 Immature Gran % (Auto) 0.5 % 11/08/21 09:11 Neut % (Auto) 93.9 % 11/08/21 09:11 Lymph % (Auto) 3.1 % 11/08/21 09:11 [place] % (Auto) 2.4 % 11/08/21 09:11 Eos % (Auto) 0.0 % 11/08/21 09:11 Baso % (Auto) 0.1 % 11/08/21 09:11 Neut # (Auto) 11.08 K/uL (1.4-6.5) H 11/08/21 09:11 Lymph # (Auto) 0.36 K/uL (1.2-3.4) L 11/08/21 09:11 [place] # (Auto) 0.28 K/uL (0.24-0.82) 11/08/21 09:11 Eos # (Auto) 0.00 K/uL (0-0.50) 11/08/21 09:11 Baso # (Auto) 0.01 K/uL (0-0.2) 11/08/21 09:11 Immature Gran # (Auto) 0.06 K/uL (0.00-0.02) H 11/08/21 09:11 Echinocytes 2+ 11/08/21 09:11 Acanthocytes (Spur) 1+ 11/08/21 09:11 PT 12.7 Seconds (9.0-12.0) H 11/08/21 09:11 INR 1.2 (0.9-1.1) H 11/08/21 09:11 APTT 26.5 Seconds (21.0-31.0) 11/08/21 09:11 PTT Ratio 1.0 11/08/21 09:11 Sodium 131 mmol/L (136-145) L 11/08/21 09:11 Potassium 4.1 mmol/L (3.5-5.1) 11/08/21 09:11 Chloride 98 mmol/L (98-107) 11/08/21 09:11 Carbon Dioxide 26 mmol/L (21-32) 11/08/21 09:11 Anion Gap 7 (3-11) 11/08/21 09:11 BUN 10 mg/dl (6-23) 11/08/21 09:11 Creatinine 0.62 mg/dl (0.6-1.2) 11/08/21 09:11 Est Cr Clr Drug Dosing Not Reportable 11/08/21 09:11 Est GFR ( Amer) 98.7 ml/min 11/08/21 09:11 Est GFR (Non-Af Amer) 85.2 ml/min 11/08/21 09:11 BUN/Creatinine Ratio 16.1 (10-20) 11/08/21 09:11 Glucose 166 mg/dl (70-99(Fasting)) H 11/08/21 09:11 POC Glucose 188 mg/dl (70-99) H 11/08/21 09:10 Calcium 9.0 mg/dl (8.5-10.1) 11/08/21 09:11 Magnesium 1.8 mg/dl (1.7-2.4) 11/08/21 09:11 Total Bilirubin 0.6 mg/dl (0.2-1.0) 11/08/21 09:11 AST 18 U/L (13-39) 11/08/21 09:11 ALT 12 U/L (7-52) 11/08/21 09:11 Alkaline Phosphatase 86 U/L (34-104) 11/08/21 09:11 Troponin I High Sens 20.7 pg/ml (0-14) H 11/08/21 09:11 Total Protein 6.0 gm/dl (6.0-8.3) 11/08/21 09:11 Albumin 3.5 gm/dl (3.4-5.0) 11/08/21 09:11 Globulin 2.5 gm/dl (2.5-4.0) 11/08/21 09:11 Albumin/Globulin Ratio 1.4 (0.9-2) 11/08/21 09:11 SARS-CoV-2, RNA, NAAT NEGATIVE (NEGATIVE) 11/08/21 09:22 Blood Type O Positive 11/08/21 09:11 Antibody Screen NEGATIVE 11/08/21 09:[address] 11/08/21 08:[address] OF THE BRAIN; CT ANGIOGRAM OF THE BRAIN; CT ANGIOGRAM OF THE NECK CLINICAL HISTORY: Strokelike symptoms. Right-sided weakness. COMPARISON STUDY: No priors. TECHNIQUE: Unenhanced axial CT scan of the brain is performed. Subsequently, following the IV administration of 120 of Optiray 300, CT angiogram of the head and neck was performed from the aortic arch to the vertex. Images are reviewed in the axial, sagittal, and coronal planes. 3-D MIPS images are created and assessed. IV contrast was administered without complication. All measurements were calculated based on NASCET criteria. A dose lowering technique was utilized adhering to the principles of ALARA. CT DOSE: 1190.58 mGy.cm FINDINGS: Brain parenchyma: There is extensive loss of marie-white matter differentiation throughout the left MCA territory consistent with a large infarct. Hyperdense thrombus is seen within the left middle cerebral artery on axial image #15. Subacute infarct also involves the left caudate head and basal ganglia. There is effacement of the overlying cortical sulci. No left right midline shift is seen. There is no hemorrhage. There is no evidence of enhancing mass lesion on the angiogram phase images. The ventricles, sulci, and cisterns are prominent secondary to involutional change. No extra-axial fluid collection is seen. Thoracic aorta: There is atherosclerotic calcification of the thoracic aorta. Visualized portions of the thoracic aorta are normal in caliber. The aortic arch demonstrates standard 3-vessel anatomy. Right carotid arterial system: The right common carotid artery is widely patent, as is the right internal carotid artery. There is a dense sclerotic plaque in the carotid bulb. This causes mild stenosis aorta and the right external carotid artery. Left carotid arterial system: The left common carotid artery is widely patent. 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 This is occluded from the bifurcation to the skull base. The left external carotid artery is patent. Vertebral arteries: The vertebral arteries are widely patent bilaterally and codominant. Subclavian arteries: Widely patent bilaterally. Intracranial vasculature: There is atherosclerotic calcification of the cavernous carotid and vertebral arteries. The right common carotid artery is widely patent at the skull base. The right middle cerebral artery is widely patent, as are the anterior cerebral arteries. The left anterior cerebral artery is supplied via the anterior communicated artery. There is complete thrombosis of the intracranial left internal carotid artery from the skull base to the [place]. There is also complete thrombosis of the left middle cerebral artery. There is a left posterior to indicating artery. The vertebrobasilar system and posterior cerebral arteries are widely patent. The vertebral arteries are codominant. No aneurysm is seen. Jugular veins: Patent bilaterally. Dural sinuses: Patent. Lung apices: Secretions are seen throughout the trachea. Emphysematous change is noted. There is an accessory azygos fissure. Upper lobe lung parenchyma is otherwise clear as imaged. Soft tissues: An airway devices in place. The visualized pharyngeal soft tissues are normal in appearance noting angiographic phase technique. The oropharyngeal airway appears widely patent. The thyroid gland is heterogeneous. The salivary glands are normal in appearance. No cervical lymphadenopathy is seen. Skeletal structures: The skeletal structures are osteopenic. The calvarium appears intact. The cervical spine is maintains noting multilevel spondylosis. No lytic or blastic lesion is seen. Orbits: The bony orbits are intact. Orbital contents are normal as visualized noting bilateral ocular lens implants. Sinuses and mastoids: There is mild mucosal thickening within the maxillary, sphenoid, and ethmoid sinuses. The mastoid air cells are well pneumatized. IMPRESSION: 1. Large subacute left MCA territory infarct with associated edema. 2. There is no hemorrhage or midline shift. 3. 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 4. 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 5. The right carotid arterial system and the vertebral arteries are patent. 6. The right middle cerebral artery, the posterior cerebral arteries, and the anterior cerebral arteries are patent. 7. Emphysema. ACT 112: Negative or not required by law. Electronically signed by: Rasta Borja M.D. 11/08/2021 9:28 AM Head CTA 11/08/21 08:[address] OF THE BRAIN; CT ANGIOGRAM OF THE BRAIN; CT ANGIOGRAM OF THE NECK CLINICAL HISTORY: Strokelike symptoms. Right-sided weakness. COMPARISON STUDY: No priors. TECHNIQUE: Unenhanced axial CT scan of the brain is performed. Subsequently, following the IV administration of 120 of Optiray 300, CT angiogram of the head and neck was performed from the aortic arch to the vertex. Images are reviewed in the axial, sagittal, and coronal planes. 3-D MIPS images are created and assessed. IV contrast was administered without complication. All measurements were calculated based on NASCET criteria. A dose lowering technique was utilized adhering to the principles of ALARA. CT DOSE: 1190.58 mGy.cm FINDINGS: Brain parenchyma: There is extensive loss of marie-white matter differentiation throughout the left MCA territory consistent with a large infarct. Hyperdense thrombus is seen within the left middle cerebral artery on axial image #15. Subacute infarct also involves the left caudate head and basal ganglia. There is effacement of the overlying cortical sulci. No left right midline shift is seen. There is no hemorrhage. There is no evidence of enhancing mass lesion on the angiogram phase images. The ventricles, sulci, and cisterns are prominent secondary to involutional change. No extra-axial fluid collection is seen. Thoracic aorta: There is atherosclerotic calcification of the thoracic aorta. Visualized portions of the thoracic aorta are normal in caliber. The aortic arch demonstrates standard 3-vessel anatomy. Right carotid arterial system: The right common carotid artery is widely patent, as is the right internal carotid artery. There is a dense sclerotic plaque in the carotid bulb. This causes mild stenosis aorta and the right external carotid artery. Left carotid arterial system: The left common carotid artery is widely patent. 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 This is occluded from the bifurcation to the skull base. The left external carotid artery is patent. Vertebral arteries: The vertebral arteries are widely patent bilaterally and codominant. Subclavian arteries: Widely patent bilaterally. Intracranial vasculature: There is atherosclerotic calcification of the cavernous carotid and vertebral arteries. The right common carotid artery is widely patent at the skull base. The right middle cerebral artery is widely patent, as are the anterior cerebral arteries. The left anterior cerebral artery is supplied via the anterior communicated artery. There is complete thrombosis of the intracranial left internal carotid artery from the skull base to the [place]. There is also complete thrombosis of the left middle cerebral artery. There is a left posterior to indicating artery. The vertebrobasilar system and posterior cerebral arteries are widely patent. The vertebral arteries are codominant. No aneurysm is seen. Jugular veins: Patent bilaterally. Dural sinuses: Patent. Lung apices: Secretions are seen throughout the trachea. Emphysematous change is noted. There is an accessory azygos fissure. Upper lobe lung parenchyma is otherwise clear as imaged. Soft tissues: An airway devices in place. The visualized pharyngeal soft tissues are normal in appearance noting angiographic phase technique. The oropharyngeal airway appears widely patent. The thyroid gland is heterogeneous. The salivary glands are normal in appearance. No cervical lymphadenopathy is seen. Skeletal structures: The skeletal structures are osteopenic. The calvarium appears intact. The cervical spine is maintains noting multilevel spondylosis. No lytic or blastic lesion is seen. Orbits: The bony orbits are intact. Orbital contents are normal as visualized noting bilateral ocular lens implants. Sinuses and mastoids: There is mild mucosal thickening within the maxillary, sphenoid, and ethmoid sinuses. The mastoid air cells are well pneumatized. IMPRESSION: 1. Large subacute left MCA territory infarct with associated edema. 2. There is no hemorrhage or midline shift. 3. 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 4. 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 5. The right carotid arterial system and the vertebral arteries are patent. 6. The right middle cerebral artery, the posterior cerebral arteries, and the anterior cerebral arteries are patent. 7. Emphysema. ACT 112: Negative or not required by law. Electronically signed by: Rasta Borja M.D. 11/08/2021 9:28 AM Neck CTA 11/08/21 08:[address] OF THE BRAIN; CT ANGIOGRAM OF THE BRAIN; CT ANGIOGRAM OF THE NECK CLINICAL HISTORY: Strokelike symptoms. Right-sided weakness. COMPARISON STUDY: No priors. TECHNIQUE: Unenhanced axial CT scan of the brain is performed. Subsequently, following the IV administration of 120 of Optiray 300, CT angiogram of the head and neck was performed from the aortic arch to the vertex. Images are reviewed in the axial, sagittal, and coronal planes. 3-D MIPS images are created and assessed. IV contrast was administered without complication. All measurements were calculated based on NASCET criteria. A dose lowering technique was utilized adhering to the principles of ALARA. CT DOSE: 1190.58 mGy.cm FINDINGS: Brain parenchyma: There is extensive loss of marie-white matter differentiation throughout the left MCA territory consistent with a large infarct. Hyperdense thrombus is seen within the left middle cerebral artery on axial image #15. Subacute infarct also involves the left caudate head and basal ganglia. There is effacement of the overlying cortical sulci. No left right midline shift is seen. There is no hemorrhage. There is no evidence of enhancing mass lesion on the angiogram phase images. The ventricles, sulci, and cisterns are prominent secondary to involutional change. No extra-axial fluid collection is seen. Thoracic aorta: There is atherosclerotic calcification of the thoracic aorta. Visualized portions of the thoracic aorta are normal in caliber. The aortic arch demonstrates standard 3-vessel anatomy. Right carotid arterial system: The right common carotid artery is widely patent, as is the right internal carotid artery. There is a dense sclerotic plaque in the carotid bulb. This causes mild stenosis aorta and the right external carotid artery. Left carotid arterial system: The left common carotid artery is widely patent. 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 This is occluded from the bifurcation to the skull base. The left external carotid artery is patent. Vertebral arteries: The vertebral arteries are widely patent bilaterally and codominant. Subclavian arteries: Widely patent bilaterally. Intracranial vasculature: There is atherosclerotic calcification of the cavernous carotid and vertebral arteries. The right common carotid artery is widely patent at the skull base. The right middle cerebral artery is widely patent, as are the anterior cerebral arteries. The left anterior cerebral artery is supplied via the anterior communicated artery. There is complete thrombosis of the intracranial left internal carotid artery from the skull base to the [place]. There is also complete thrombosis of the left middle cerebral artery. There is a left posterior to indicating artery. The vertebrobasilar system and posterior cerebral arteries are widely patent. The vertebral arteries are codominant. No aneurysm is seen. Jugular veins: Patent bilaterally. Dural sinuses: Patent. Lung apices: Secretions are seen throughout the trachea. Emphysematous change is noted. There is an accessory azygos fissure. Upper lobe lung parenchyma is otherwise clear as imaged. Soft tissues: An airway devices in place. The visualized pharyngeal soft tissues are normal in appearance noting angiographic phase technique. The oropharyngeal airway appears widely patent. The thyroid gland is heterogeneous. The salivary glands are normal in appearance. No cervical lymphadenopathy is seen. Skeletal structures: The skeletal structures are osteopenic. The calvarium appears intact. The cervical spine is maintains noting multilevel spondylosis. No lytic or blastic lesion is seen. Orbits: The bony orbits are intact. Orbital contents are normal as visualized noting bilateral ocular lens implants. Sinuses and mastoids: There is mild mucosal thickening within the maxillary, sphenoid, and ethmoid sinuses. The mastoid air cells are well pneumatized. IMPRESSION: 1. Large subacute left MCA territory infarct with associated edema. 2. There is no hemorrhage or midline shift. 3. 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 4. 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 5. The right carotid arterial system and the vertebral arteries are patent. 6. The right middle cerebral artery, the posterior cerebral arteries, and the anterior cerebral arteries are patent. 7. Emphysema. ACT 112: Negative or not required by law. Electronically signed by: Rasta Borja M.D. 11/08/2021 9:28 AM Medications Administered Current Inpatient Medications Glycopyrrolate (Glycopyrrolate 0.2 Mg/Ml Vial) 0.2 mg IV Q4H PRN PRN Reason: Secretions or Pulm Congestion Stop: 12/08/21 10:23 Last Admin: 11/09/21 06:42 Dose: 0.2 mg Lorazepam 0.5 mg/ Syringe 0.5 mls @ 2 mls/min IV Q4H PRN PRN Reason: Anxiety/Agitation Stop: 12/08/21 19:14 Morphine Sulfate (Morphine Sulfate 5 Mg/0.25 Ml Udp) 5 mg PO Q3H PRN PRN Reason: Pain or Respiratory Distress Stop: 11/22/21 10:23 Last Admin: 11/09/21 11:05 Dose: 5 mg Ondansetron HCl (Ondansetron 4 Mg Od Tab) 4 mg SL Q4H PRN PRN Reason: Nausea &/or Vomiting Stop: 12/08/21 10:23
[2021-11-09] MEDS ORDERED: LORazepam 1 MG TAB SL PRN (13:55)
[2021-11-09] MEDS ORDERED: DIPHENOXYLATE/ATROPINE 2.5/0.025MG TAB PO PRN (13:55)
[2021-11-09] MEDS ORDERED: ATROPINE SULFATE 1% OP SOLN 2 ML BTL PO PRN (14:31)
[2021-11-10] MEDS: MoRPHine SULFATE 5 MG/0.25 ML UDP PO PRN ×2 (05:50→17:16)
--- NOTE | 2021-11-10 13:02 | Hospitalist Progress Note ---
Date of Service November 10, 2021 Assessment & Plan (1) Acute ischemic left MCA stroke: (2) Pain after cerebrovascular accident (CVA): (3) Goals of care, counseling/discussion: Plan: CT head showed large subacute left MCA territory infarct with associated edema but no Midline Shift 2. 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 3. 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 Tele Neuro consult with [facility] Dr. Santo; due to the large area of infarct and numerous deficits, no TNF nor embolectomy recommended as patient is unlikely to have a meaningful recovery. 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 Family transition to comfort care only Family understood and agreed about discontinuing all blood draws, medications not focused on comfort and confirmed no artificial nutrition or hydration with feeding tubes or TPN. No MRI, tele or echocardiogram. Continue ativan and Morphine prn for comfort care Continue Roxanol PO PRN if able Disposition: Comfort Care Code: DNR/DNI Point of Contact: Karlene, daughter: [phone] Admission and Anticipated Discharge Date Admission Date: November 08, 2021 Subjective Pt was seen and examined for follow up of stroke Lying in bed with eyes closed She moved her lower extremities when scratching the bottom of her feet and she was able to move her LUE Patient is now comfort care Review of Systems Review of Systems: All systems reviewed & are unremarkable except as noted in Subjective Physical Exam Physical Exam: General- looks comfortable in bed Head- atraumatic Eyes- PERRL, EOMI, ENT- oropharynx clear Neck- supple, no JVD Lungs- clear to auscultation Heart- regular rhythm; no murmur Abdomen- normal bowel sounds, soft, nontender Extremities- no calf tenderness Neuro- alert, oriented x 3; PERRL, EOMI; no facial palsy; no dysarthria Skin- warm & dry Results & Data Results & Data ([facility]) Vital Signs (Past 12 Hours) Vital Signs Temp Pulse Resp BP Pulse Ox O2 Del Method 11/10/21 07:57 36.7 C 93 H 18 153/95 H 87 L Room Air
--- NOTE | 2021-11-11 13:39 | Discharge Summary ---
Date of Service November 11, 2021 Admission HPI Per Admitting Provider Ms. Sendy Green is an 81 year old that presented from home via EMS with signs of a stroke. All of the patients history was obtained from the daughter Karlene as the patient is obtunded. Karlene was with her on Monday and she left her to go to watch the [employer] game and there were no signs of anything remarkable. This morning she went to see her and she was slumped over in her chair with her eyes fixed gaze towards the ceiling and she was not able to communicate or respond to her daughter, so she called 911. There were no reported/witnessed falls or trauma. 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 A stroke alert was called into [facility] and the case was discussed by the ED physician with Dr. Santo who recommended that due to the large area of infarct and numerous deficits, no TNF nor embolectomy recommended as patient is unlikely to have a meaningful recovery. Lengthy conversation held with patients daughter, Karlene, as outline in the A/P and the decision was made to transition to [employer] as discussed with patients family an no further diagnostic imaging to occur, including MRI. The patient was lying in her bed, unable to complete a ROS due to being obtunded and not responsive to verbal or tactile stimulation. She had furrowed brow and was flacid on her right side, but no movement generally. Please see A/P for further details. Admission Exam Per Admitting Provider Neuro: obtunded, no response to verbal or tactile stimuli HEENT: head normocephalic, dry mucus membranes, right gaze deviation CV: S1/S2, (-) M/G/R, (-) edema, cap refill < 3 seconds Resp: Lungs CTA in all [place]. On RA GI: Abdomen S/NT/ND, + bowel sounds Musculoskeletal: right side flaccid, left side with 1/5 Extremities: No clubbing, cyanosis or edema Skin: (-) rashes , (-) erythema. Principal Diagnosis left MCA stroke Discharge Exam General: Patient resting in bed, does not appear to be in distress or pain Neuro: opens eyes to verbal stimuli but does not track, does not interact, does not follow commands Lung: Diminished breath sounds bilaterally Heart: Regular rate, regular rhythm, no murmurs, rubs, or gallops Rest of physical exam deferred as patient is comfort care Discharge Data Allergies Allergy/AdvReac Type Severity Reaction Status Date / Time cephalexin AdvReac Unknown YEAST Verified 11/20/20 10:49 INFECT Influenza Virus Vaccines AdvReac Unknown GOT THE Verified 11/20/20 10:49 FLU YRS AGO Consultations 11/08/21 09:44 ED Decision to Admit Stat Ordered Studies 11/08/21 08:50 CT angio head w con Stat CT angio neck with con Stat CT head/brain wo con Stat Hospital Course (1) Acute ischemic left MCA stroke: (2) Pain after cerebrovascular accident (CVA): (3) Goals of care, counseling/discussion: Sendy was admitted for acute ischemic left MCA in setting of atrial fibrillation. Head CT and head/neck CTA with large left MCA territory stroke as well as complete thrombosis of the L ICA and MCA. [place] neurology was consulted and due to large area of infarct, no TNF nor embolectomy recommended as patient is unlikely to have a meaningful recovery. Per discussion with patient's daughter at bedside, due to extent of stroke, daughter elected to transition to comfort measures only. Roxanol, Ativan and atropine were made available PRN to keep patient comfortable. Discharge to [facility] today as a hospice patient. Hospice to manage PRN comfort care medications. Total Time Total Time Spent Total Time Spent (In Minutes): 35 Discharge Plan Discharge Items Patient Disposition: Hospice - Medical Facility Reason For Visit: STROKE Discharge Diagnosis: left MCA stroke Activity: Resume your previous activity Non-emergency contact: Primary Care Provider Call non-emergency contact if: you have any medication questions, your symptoms worsen, your pain is not controlled and you have a fever Follow-up/Referrals: Debo Barber MD [Primary Care Provider] - Diet: Regular Diet Comment: NPO now but may adv to reg.diet as tolerated given comfort care status Addtl Attending Provider Instructions: Sendy was admitted for acute ischemic left MCA in setting of atrial fibrillation. Head CT and head/neck CTA with large left MCA territory stroke as well as complete thrombosis of the L ICA and MCA. [place] neurology was consulted and due to large area of infarct, no TNF nor embolectomy recommended as patient is unlikely to have a meaningful recovery. Per discussion with patient's daughter at bedside, due to extent of stroke, daughter elected to transition to comfort measures only. Roxanol, Ativan and atropine were made available PRN to keep patient comfortable. Discharge to [facility] today as a hospice patient. Hospice to manage PRN comfort care medications. Please take good care of yourself. Call if you have any questions or problems. You can reach a [facility] hospitalist on duty at [facility] 24 hours a day by calling [phone]. Pending Studies at Discharge: No Stand-Alone Forms: My [facility] Skilled Items Patient informed of condition?: Yes DNR: Yes Discharge Level of Care: Skilled Communicable Disease: No Discharge Prognosis: Stable Lines: None Urinary Catheter: Yes Medications and DC Order Discharge Orders: Discharge Order (Routine); Ordered 11/11/21 Ordered By: Tova Kelley Admission Data Admit Date/Time: 11/08/21 10:24 Attending Provider: Brianan Nino Admit Provider: Ubaldo Hebert Primary Care Provider: Debo Barber Other Providers: Susannah Flores ; [facility] ; Tova Kelley
[2021-11-11] MEDS: MoRPHine SULFATE 5 MG/0.25 ML UDP PO PRN (15:00)
== END 2021-11-11 15:27 | disposition hospice, inpatient (51) | DRG 66 ==
LOC: ED 08:56 → EDINP 10:24 → SUATTDRO 10:24 → 3W 11:52